=== PATIENT | male | born 1965 | race Caucasian/White ===

== ENCOUNTER 2017-02-02 02:50 | Inpatient (IN) | payer OTHER ==
[~2017-02-02] VITALS: Ht 166.4 cm; Wt 89.7 kg
[~2017-02-02 02:50] MED LIST: ALLO300T2 PO; ATOR-24 PO; BUPR-269 PO; CALC-279 PO; FRS/40 PO; INSDGI SC; LIRA18IN SQ; LISI5TAB3 PO; LYR75 PO; METF-384 PO; PANT40TA PO; RANI300T2 PO; VENL150C PO; VENL75CA PO; VTMD1000 PO; ZOLP5TAB PO
[2017-02-02 03:37] LABS: HEMATOCRIT 43.7 % (42-52); MEAN CELL VOLUME 85.5 fL (80-100); MEAN CORPUSCULAR HGB CONC 32.7 g/dl (32-36); MEAN PLATELET VOLUME 9.4 fL (7.4-10.4); PLATELET COUNT 308 K/uL (130-400); RED BLOOD COUNT 5.11 M/uL (4.7-6.1); WHITE BLOOD COUNT 8.72 K/uL (4.8-10.8)
[2017-02-02 03:45] LABS: BLOOD UREA NITROGEN 18 mg/dl (7-18); GLUCOSE 116 mg/dl (70-99)
[2017-02-02 03:46] LABS: ALT/SGPT 25 U/L (12-78); AST/SGOT 12 U/L (15-37); BUN/CREATININE RATIO 14.1 (10-20); CALCIUM 8.7 mg/dl (8.5-10.1); CARBON DIOXIDE 24 mmol/L (21-32); CHLORIDE 112 mmol/L (98-107); POTASSIUM 3.9 mmol/L (3.5-5.1); SODIUM 144 mmol/L (136-145)
--- NOTE | 2017-02-02 03:49 | EMERGENCY ROOM VISIT NOTE ---
History Report prepared by Clark: Marek Bragg Under the Supervision of: Dr. Kia Epstein D.O. First contact with patient: 03:06 Chief Complaint: MENTAL HEALTH EVALUATION Stated Complaint: SUICIDAL THOUGHTS AND DEPRESSION History of Present Illness The patient is a 51 year old male who presents to the Emergency Room with complaints of constant suicidal ideations beginning this evening. The patient states that nothing has happened, he is just very suicidal and depressed. He reports that if he was not brought in by his , "I would not be here". The patient notes this is the first time he has experienced these ideations. He states he has a history of depression, but he stopped taking his medication because he had gastric bypass surgery and pills hurt his stomach. The patient reports that he does not see a psychiatrist; his PCP prescribes his medication. He notes that 30 minutes ago, he stated "I wish I could take a knife to my chest ". 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 He reports he has never been hospitalized for his current symptoms. The patient notes he is , so he does not see his children everyday. He states he uses alcohol weekly, and he will not go through withdraw. 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 He notes has a history of five hip replacements. The patient denies drug use. Source of History: patient Onset: this evening Position: head Quality: other (suicidal ideations) Timing: constant Associated Symptoms: + abdominal pain Note: Associated symptoms: suicidal plan Review of Systems See HPI for pertinent positives & negatives. A total of 10 systems reviewed and were otherwise negative. Past Medical & Surgical Medical Problems: (1) Chronic hip pain (2) DEPRESSIVE DISORDER NEC (3) HIP JOINT REPLACEMENT STATUS (4) HYPERLIPIDEMIA NEC/NOS (5) Major depressive disorder, recurrent severe without psychotic features (6) Staphylococcal infectious disease Surgical Problems: (1) Status post gastric bypass for obesity Family History Diabetes mellitus Social History Smoking Status: Never Smoker Alcohol Use: occasionally Drug Use: none Marital Status: Housing Status: lives with family Occupation Status: unemployed Current/Historical Medications Scheduled Atorvastatin (Lipitor), 40 MG PO DAILY Pantoprazole (Protonix), 40 MG PO DAILY Allergies Coded Allergies: Penicillins (Verified Allergy, Unknown, joints swell; "serum sickness", 03/29) Physical Exam Vital Signs Date Time Temp Pulse Resp B/P (MAP) Pulse Ox O2 Delivery O2 Flow Rate FiO2 02/02/17 12:01 84 18 140/85 96 02/02/17 10:00 98 18 140/81 95 Room Air 02/02/17 09:00 18 131/71 94 Room Air 02/02/17 08:00 18 130/70 94 Room Air 02/02/17 07:00 94 16 133/56 95 Room Air 02/02/17 06:00 70 16 109/53 93 Room Air 02/02/17 05:01 75 18 102/56 91 Room Air 02/02/17 04:30 72 16 121/60 93 Room Air 02/02/17 02:59 36.9 71 18 138/74 99 Room Air Physical Exam HEENT: Head - normocephalic and atraumatic Pupils are equal, round, and reactive to light. Extraocular eye muscles are intact, and sclera are anicteric. Nose - moist nasal mucosa without discharge. Mouth - moist buccal mucosa. Oropharynx is nonerythematous and there is no tonsillar exudate or edema noted. Neck: Supple; no JVD, nuchal rigidity, cervical lymphadenopathy. Heart: Regular rate and rhythm. There is a normal S1 and S2 with no murmurs, clicks, or gallops appreciated. Lungs: Clear to auscultation bilaterally with no wheezes, rales, or rhonchi. Abdomen: Soft, completely nontender, nondistended, with good bowel sounds. There are no palpable pulsatile masses or hepatosplenomegaly. There is no guarding, rigidity, or rebound noted. Extremities: No evidence of cyanosis, clubbing, or edema. There are easily palpable peripheral pulses. Skin: warm and dry with good turgor and no rashes. Psych: Patient appears depressed with a flat affect. He admits to suicidal ideations with a plan to stab himself in the chest. Medical Decision & Procedures Laboratory Results 02/02/17 03:16 02/02/17 03:16 Test 02/02/17 03:16 02/02/17 03:23 Red Blood Count 5.11 M/uL (4.7-6.1) Mean Corpuscular Volume 85.5 fL (80-100) Mean Corpuscular Hemoglobin 28.0 pg (25-34) Mean Corpuscular Hemoglobin Concent 32.7 g/dl (32-36) RDW Standard Deviation 44.2 fL (36.4-46.3) RDW Coefficient of Variation 14.3 % (11.5-14.5) Mean Platelet Volume 9.4 fL (7.4-10.4) Anion Gap 8.0 mmol/L (3-11) Est Creatinine Clear Calc Drug Dose 73.4 ml/min Estimated GFR () 74.3 Estimated GFR (Non- 64.1 BUN/Creatinine Ratio 14.1 (10-20) Calcium Level 8.7 mg/dl (8.5-10.1) Total Bilirubin 0.2 mg/dl (0.2-1) Direct Bilirubin < 0.1 mg/dl (0-0.2) Aspartate Amino Transf (AST/SGOT) 12 U/L (15-37) Alanine Aminotransferase (ALT/SGPT) 25 U/L (12-78) Alkaline Phosphatase 169 U/L (45-117) Total Protein 7.4 gm/dl (6.4-8.2) Albumin 3.4 gm/dl (3.4-5.0) Thyroid Stimulating Hormone (TSH) 2.850 uIu/ml (0.300-4.500) Salicylates Level < 1.7 mg/dl (2.8-20) Acetaminophen Level < 2 ug/ml (10-30) Ethyl Alcohol mg/dL 243.0 mg/dl (0-3) Urine Color YELLOW Urine Appearance CLEAR (CLEAR) Urine pH 5.0 (4.5-7.5) Urine Specific [place] 1.013 (1.000-1.030) Urine Protein 1+ (NEG) Urine Glucose (UA) NEG (NEG) Urine Ketones NEG (NEG) Urine Occult Blood NEG (NEG) Urine Nitrite NEG (NEG) Urine Bilirubin NEG (NEG) Urine Urobilinogen NEG (NEG) Urine Leukocyte Esterase NEG (NEG) Urine WBC (Auto) 0 /hpf (0-5) Urine RBC (Auto) 0-4 /hpf (0-4) Urine Hyaline Casts (Auto) 0 /lpf (0-5) Urine Epithelial Cells (Auto) 5-10 /lpf (0-5) Urine Bacteria (Auto) NEG (NEG) Urine Opiates Screen NEG (NEG) Urine Methadone, Qualitative NEG (NEG) Urine Barbiturates NEG (NEG) Urine Phencyclidine (PCP) Level NEG (NEG) Ur Amphetamine/Methamphetamine NEG (NEG) MDMA (Ecstasy) Screen NEG (NEG) Urine Benzodiazepines Screen NEG (NEG) Urine Cocaine Metabolite NEG (NEG) Urine Marijuana (THC) NEG (NEG) Laboratory results per my review. ED Course 0330: Past medical records reviewed. The patient was evaluated in room A08. A complete history and physical exam was performed. Labs were drawn as above 0616: I reevaluated the patient, and he is sound asleep. The patient is intoxicated and will require some time to sober up and be medically cleared. 0630: At the change of shift, the patient was signed out to Dr. Herman. Medical Decision The patient is a 51 year old male who presents to the ED with constant suicidal ideations. Differential diagnosis includes suicidal ideations, mood disorder, medication noncompliance. Lab results per my interpretation: normal WBC and H&H, normal TSH and renal function, glucose of 116, normal LFTs, negative tox screen, negative Tylenol and aspirin levels, alcohol of 243, urinalysis is unremarkable. This is a 51 year old male who is not taking his meds as directed. He has becoming increasingly depressed and was drinking alcohol tonight. He had plans to stab himself in the chest. his was able to stop him and bring him to the ER for evaluation. he is willing to admit himself voluntarily. He will be signed out to Dr. Herman at change of shift awaiting sobriety for medical clearance. Impression Primary Impression: Suicidal ideation Scribe Attestation The scribe's documentation has been prepared under my direction and personally reviewed by me in its entirety. I confirm that the note above accurately reflects all work, treatment, procedures, and medical decision making performed by me. Departure Information Dispostion Still a Patient Referrals Reji Cortez III, M.D. (PCP) Patient Instructions [facility]
[2017-02-02 03:50] LABS: URINE APPEARANCE CLEAR (CLEAR); URINE BILIRUBIN NEG (NEG); URINE COLOR YELLOW; URINE NITRITE NEG (NEG); URINE SPECIFIC GRAVITY 1.013 (1.000-1.030); UROBILINOGEN NEG (NEG)
[2017-02-02 03:56] LABS: ALKALINE PHOSPHATASE 169 U/L (45-117)
[2017-02-02 03:59] LABS: MANUAL MICROSCOPIC REQUIRED? NO; REVIEW REQ? YES
[2017-02-02 04:09] LABS: BENZODIAZEPINE, URINE NEG (NEG); COCAINE,URINE NEG (NEG); PHENCYCLIDINE, URINE NEG (NEG)
[2017-02-02 04:18] LABS: ACETAMINOPHEN < 2 ug/ml (10-30)
[2017-02-02] MEDS ORDERED: EFFSR75 PO (10:49)
[2017-02-02 12:01] VITALS: O2SAT 96
[2017-02-02 12:38] VITALS: BP 153/78; PULSE 85; TEMP 36.9; Ht 166.4 cm; Wt 89.7 kg
[2017-02-02] MEDS ORDERED: BISMUTH SUBSALICYLATE PER ML OMNICELL CHARGE PO PRN (12:45)
[2017-02-02] MEDS ORDERED: SODIUM CHLORIDE 0.65% NA SOLN 45 ML (OCEAN) PRN (12:45)
[2017-02-02] MEDS ORDERED: ALUMINUM/MAGNESIUM SUSP 30 ML UDC PO PRN (12:45)
[2017-02-02] MEDS ORDERED: LORAZEPAM 1 MG TAB PO PRN (12:45)
[2017-02-02] MEDS ORDERED: hydrOXYzine HCL 25 MG TAB PO PRN (12:45)
[2017-02-02] MEDS ORDERED: ACETAMINOPHEN 325 MG TAB PO PRN (12:45)
[2017-02-02] MEDS ORDERED: MAGNESIUM HYDROXIDE SUSP 30 ML UDC PO PRN (12:45)
--- NOTE | 2017-02-02 13:38 | EMERGENCY ROOM VISIT NOTE ---
ED Visit Note First contact with patient: 10:31 The patient was evaluated and awake, alert, and talking with [place]. Skin no complaints of the time. He is agreeable to a 201 as he was having thoughts of self-harm last night.
[2017-02-02] MEDS ORDERED: VENL75TA4 PO (16:12)
[2017-02-02 16:14] VITALS: BP 150/81; PULSE 79; TEMP 36.8
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
[2017-02-02 20:35] VITALS: BP 144/84; PULSE 71; TEMP 36.9
[2017-02-02] MEDS ORDERED: RANITIDINE HCL 150 MG TAB PO SCH (22:00)
[2017-02-02] MEDS ORDERED: VENLAFAXINE HCL XR 75 MG CAPXR PO SCH (22:00)
[2017-02-03 06:52] VITALS: BP_SYST 148; BP_SYST 154; BP_DIAS 83; PULSE 65; PULSE 92; TEMP 36.8
[2017-02-03 08:01] VITALS: BP 134/82; PULSE 70; TEMP 36.7
[2017-02-03] MEDS ORDERED: ATORVASTATIN 40 MG TAB PO SCH (09:00)
[2017-02-03] MEDS ORDERED: VENLAFAXINE HCL XR 75 MG CAPXR PO SCH (09:00)
[2017-02-03] MEDS ORDERED: VENLAFAXINE HCL 37.5 MG TAB PO SCH (09:00)
[2017-02-03] MEDS: PANTOprazole SOD 40 MG TAB PO SCH (09:19)
[2017-02-03] MEDS: ATORVASTATIN 40 MG TAB PO SCH (09:19)
[2017-02-03 12:33] VITALS: BP 165/97; PULSE 70; TEMP 37
[2017-02-03 17:36] VITALS: BP 146/80; PULSE 67; TEMP 36.9
--- NOTE | 2017-02-03 17:44 | Psychiatric Progress Notes ---
Progress Note Date of Service Feb 03, 2017. Chief Complaint "abd pain that meds seem to worsen". Subjective Patient was seen & assessed interval progress reviewed with nursing. Pt weary about Effexor ir and how could worsen his GI concern of abd pain. He feels that various tabs/caps are likely to worsen his abd pain. He associates this with the Effexor ir pill. He is also needing a med and form that can be well absorbed despite s/p gastric bypass. He is highly focused on liquid form of antidepressant medication or dissolvable form. He shared how various med trials over the many years tend to work decently but some have had various Sexual s/e. Effexor ir had delayed ejaculation but less sexual s/e then some of the other ones. He does not think that he ever took lexapro or celexa or remeron. He described being more irritable when more depressed. he endorsed 10 years of not drinking alcohol but about 8 hours ago starting drinking alcohol again with various degree of being able to drink moderately and occasionally only. However past few months his drinking increased beyond contained amounts. He is expressing motivation to abstaining from all alcohol usage for the time being since he realizes he is not in a place to contain his alcohol levels and that once drinks 3-4 drinks is likely to drink much more. HE endorsed a past h/o blackouts when drink in his 20's but not with drinking in recent years. He endorsed h/o peripheral neuropathy but wants to remain off gabapentin or Lyrica that has taken in the past. his mood is not as depressed today and SI is passive since being here and denied being present at time of assessment. 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 Review of Systems Constitutional: No fever, No chills, No sweats, No weight loss, No weakness, No fatigue, No problem reported ENT: No hearing loss, No unusual epistaxis, No nasal symptoms, No sore throat, No tinnitus, No dental problems, No trouble swallowing, No problem reported Respiratory: No cough, No sputum, No wheezing, No shortness of breath, No dyspnea on exertion, No dyspnea at rest, No hemoptysis, No problem reported Cardiovascular: No chest pain, No orthopnea, No PND, No edema, No claudication , No palpitations, No problem reported Abdomen: + problem reported (abd pain and bloating) Musculoskeletal: + joint pain Neurologic: + problem reported (peripheral neuropathy and parathesia ) Psychiatric: + depression symptoms Sleep Information Total Hours of Sleep: 7.00 Meal Information Percent of Breakfast Consumed: 100 Percent of Lunch Consumed: 100 Percent of Dinner Consumed: 75 Mental Status Exam During interview pt is: alert and oriented, cooperative Appearance: appropriately dressed, appropriately groomed Eye contact is: good Motor behavior is: no abnormal motor movements, other (gait limping) Speech: normal in rate, rhythm & volume Affect: mood congruent Mood is: other (less depresed today ) Thought process: goal directed Thought content: reality based without delusions Suicidal thought are: Plan: denied, Intent: denied Homicidal thoughts are: denied Hallucinations: denies auditory, denies visual Cognition: memory grossly intact, attention grossly intact, language grossly intact Intelligence estimated to be: average Insight: fair Judgement: fair Impression 51-year-old gentleman with chronic depression, admitted voluntarily with alcohol abuse and suicidal ideation. He is able to recognize that being inconsistent with his medications has contributed to his depression and is agreeable to restarting medicines and finding ways to be more consistent. He has been followed by GI at [facility] but was released 3 months ago after his endoscopy was completely normal. He would like to have GI follow-up locally and we will attempt to make that referral here as his occasional stomach pain is interfering with his ability to take his medications. He will also need psychiatric follow-up given the chronicity of his depression. Alcohol binging has been a problem in the past and he was able to successfully abstain from that for 10 years but has resorted back to it during this time of depression. We're recommending abstinence which he is agreeable to. At this time however he requires inpatient mental health treatment due to the severity of his condition and the risk for self-harm if discharged. Plan (1) Major depressive disorder, recurrent severe without psychotic features 02/02 - Restart Effexor IR 75 mg every morning to target not only mood but chronic pain if tolerated will be able to escalate to 75 mg twice a day over the weekend - Family meeting with - Every 15 minute checks for safety - Encourage participation in group and individual counseling - The patient will need psychiatric aftercare - Explore healthy coping strategies 02/03 -stop effexor ir, replace with lexapro liquid form, tonight 5mg hs, increase to 10mg as of 02/04. consider remeron dissolvable form since the remeron much less likely to have any GI s/e and the dissolvable form would bypass GI tract, however sedation s/e concerns and potential issue of obtaining odt pill form had us prefer lexparo liquid as preferred choice.cymbalta reviwwed but capslue that are not to be opened and ER form of med has pt not willing to take (pt is s/p gastric bypass ) (2) Alcohol use disorder 02/02 - Recommend abstaining from alcohol for now 02/03 -reviewed alcohol concerns in detail and using motivational style interviewing for over 10 minutes, pt is indicating plan to abstain from alcohol for foressable immediate future, aims to enlist in support of this, pt at this time does not feel he needs counseling that is substance focused or rehab or meds to address ptoential cravings since went 10 years without drinking with needing such interventions and was drinking more freq and heavier when quit drinking back then (3) Chronic hip pain 02/02 - Tylenol when necessary (4) HYPERLIPIDEMIA NEC/NOS 02/02 - Continue a tour atorvastatin at home dosing (5) Status post gastric bypass for obesity 02/02 - Only immediate release medications - Continue Protonix 40 mg daily - Referred to outpatient GI through [facility]. If pain continues here in the hospital, consider consulting while here Has been reviewed with Dr. Angela bruce Discharge / Aftercare Planning Primary Care Physician: Name: Dr. Cortez Therapist: Name: none Litigation Claim Representative: Name: none Visit Code E&M Code: 33134 Inventory Assets Strengths: Love of his , recent weight loss resulting in improvement in his health conditions Needs: To abstain from alcohol Risk Factors Assessment Male: Yes : Yes /single/: No Higher / Fall in social status: No Health problems: Yes Mental Health Diagnoses: Yes Substance use disorders: Yes Previous attempt: No Previous psychiatric stay: No Hopelessness: No Smoker: No Protective Factors Assessment Congregational beliefs: No Responsible for young children: No Employed: Yes Stable relationships: Yes Supportive family: Yes Data Vital Signs Last 24 Hrs: Date Time Temp Pulse Resp B/P (MAP) Pulse Ox O2 Delivery O2 Flow Rate FiO2 02/03/17 12:33 37.0 70 18 165/97 02/03/17 08:01 36.7 70 16 134/82 02/03/17 06:52 36.8 65 16 148/83 92 154/83 02/02/17 20:35 36.9 71 16 144/84 Meds Administered Last 24 Hrs: Meds Administered (Past 24Hrs) Medications (Trade) Dose Ordered Sig/Betty Route Start Time Stop Time Status Last Admin Dose Admin Pantoprazole Sodium (Protonix Tab) 40 mg DAILY PO 02/03/17 09:00 03/05/17 08:59 02/03/17 09:19 40 MG Venlafaxine HCl (effeXOR TAB) 75 mg QAM PO 02/03/17 09:00 02/03/17 12:04 DC 02/03/17 09:19 75 MG Atorvastatin Calcium (Lipitor Tab) 40 mg QAM PO 02/03/17 09:00 03/05/17 08:59 02/03/17 09:19 40 MG
[2017-02-03 20:48] VITALS: BP 148/88; PULSE 63; TEMP 36.8
[2017-02-03] MEDS ORDERED: ESCITALOPRAM OXALATE 5 MG/5 ML PO SCH (22:00)
[2017-02-04] MEDS: hydrOXYzine HCL 25 MG TAB PO PRN ×2 (00:51→21:06)
[2017-02-04 06:49] VITALS: BP_SYST 138; BP_SYST 146; BP_DIAS 81; BP_DIAS 82; PULSE 57; PULSE 66; TEMP 36.5
[2017-02-04] MEDS: ATORVASTATIN 40 MG TAB PO SCH (09:00)
[2017-02-04] MEDS: PANTOprazole SOD 40 MG TAB PO SCH (09:00)
--- NOTE | 2017-02-04 12:05 | Psychiatric Progress Notes ---
Progress Note Date of Service Feb 04, 2017. Chief Complaint "feeling better". Subjective Patient was seen & assessed interval progress reviewed with nursing. Pt indicated that he is feeling better today, noticing some improvement in his "deep, dark depression" He is having a better sense of motivation, hope, and more able to engage. He watched some of the [employer] football game last night and got into it a bit. He did have trouble going to sleep and indicates this is worsened by his tending to work nights but also did not fall asleep till after 3am, with sitting in the day room for an extended time after obtaining the vistaril dose at about 0050. Pt feels his GI pain has lessened form yesterday and more indigestion and GERD discomfort that he finds more tolerable today. he indicated to nursing staff yesterday that the pain he had yesterday morning was to the degree that he would be pulled to hold his meds while expressing a desire to maintain on an antidepressant due to realizing how alleviating it is for him in treating his symptoms. He also has aa sense that lexapro liquid will be less aggravating to his GI concerns and wants to continue on this medication. He denied si or hi. He is attending group.s He slept about 4 1/2 hours per staff. he shared how he has been prescribed lisinopril 2.5mg at bedtime but has not taken this med in past few weeks and was poor in med compliance with any meds in recent past. He is wanting to resume the lisinopril due to his DM/kidney concerns and how his BP has been increasing some while on the unit. He denied s/e to the first dose of lexapro. Family meeting with scheduled for Sunday. told his family members about his hospital stay and pt obtaining supportive feedback from them. Review of Systems Constitutional: No fever, No chills, No sweats, No weight loss, No weakness, No fatigue, No problem reported ENT: No hearing loss, No unusual epistaxis, No nasal symptoms, No sore throat, No tinnitus, No dental problems, No trouble swallowing, No problem reported Cardiovascular: No chest pain, No orthopnea, No PND, No edema, No claudication , No palpitations, No problem reported Abdomen: + pain (improved to milder GERD/indigestion only today ) Psychiatric: + depression symptoms, + insomnia Sleep Information Total Hours of Sleep: 4.50 Meal Information Percent of Breakfast Consumed: 100 Percent of Lunch Consumed: 100 Percent of Dinner Consumed: 0 Mental Status Exam During interview pt is: alert and oriented, cooperative Appearance: appropriately dressed, appropriately groomed Eye contact is: good Motor behavior is: no abnormal motor movements, other (gait limping) Speech: normal in rate, rhythm & volume Affect: mood congruent Mood is: other ("feeling better then yesterday") Thought process: goal directed Thought content: reality based without delusions Suicidal thought are: Plan: denied, Intent: denied Homicidal thoughts are: denied Hallucinations: denies auditory, denies visual Cognition: memory grossly intact, attention grossly intact, language grossly intact Intelligence estimated to be: average Insight: fair (improving) Judgement: fair (improving , some ambivalance that appears to be lessening) Impression 51-year-old gentleman with chronic depression, admitted voluntarily with alcohol abuse and suicidal ideation. He is able to recognize that being inconsistent with his medications has contributed to his depression and is agreeable to restarting medicines and finding ways to be more consistent. He has been followed by GI at [facility] but was released 3 months ago after his endoscopy was completely normal. He would like to have GI follow-up locally and we will attempt to make that referral here as his occasional stomach pain is interfering with his ability to take his medications. He will also need psychiatric follow-up given the chronicity of his depression. Alcohol binging has been a problem in the past and he was able to successfully abstain from that for 10 years but has resorted back to it during this time of depression. We're recommending abstinence which he is agreeable to. At this time however he requires inpatient mental health treatment due to the severity of his condition and the risk for self-harm if discharged. Plan (1) Major depressive disorder, recurrent severe without psychotic features 02/02 - Restart Effexor IR 75 mg every morning to target not only mood but chronic pain if tolerated will be able to escalate to 75 mg twice a day over the weekend - Family meeting with - Every 15 minute checks for safety - Encourage participation in group and individual counseling - The patient will need psychiatric aftercare - Explore healthy coping strategies 02/03 -stop effexor ir, replace with lexapro liquid form, tonight 5mg hs, increase to 10mg as of 02/04. consider remeron dissolvable form since the remeron much less likely to have any GI s/e and the dissolvable form would bypass GI tract, however sedation s/e concerns and potential issue of obtaining odt pill form had us prefer lexparo liquid as preferred choice.cymbalta reviwwed but capslue that are not to be opened and ER form of med has pt not willing to take (pt is s/p gastric bypass ) 02/04 increase lexapro liquid 10mg hs offered switched to remeron dissolvable tabs pt prefers to continue lexapro trial since GI concerns improving currently family meeting with on Sunday (2) Alcohol use disorder 02/02 - Recommend abstaining from alcohol for now 02/03 -reviewed alcohol concerns in detail and using motivational style interviewing for over 10 minutes, pt is indicating plan to abstain from alcohol for foressable immediate future, aims to enlist in support of this, pt at this time does not feel he needs counseling that is substance focused or rehab or meds to address ptoential cravings since went 10 years without drinking with needing such interventions and was drinking more freq and heavier when quit drinking back then 02/04 discontinue alcohol withdrawal precautions orders given lack of symptoms, pt denied craving for alcohol and continues to express desire to abstain and to obtain 's support (3) Chronic hip pain 02/02 - Tylenol when necessary (4) HYPERLIPIDEMIA NEC/NOS 02/02 - Continue a tour atorvastatin at home dosing (5) Status post gastric bypass for obesity 02/02 - Only immediate release medications - Continue Protonix 40 mg daily - Referred to outpatient GI through [facility]. If pain continues here in the hospital, consider consulting while here (6) Diabetes mellitus with hyperglycemia 02/04 -- resumed outpt lisinopril at 2.5mg hs, pt has not taken much of his outpt meds in weeks leading up to admission, BP trending upward and lisinpril was also used for kidney function concerns with his DM Has been reviewed with Dr. Angela bruce Discharge / Aftercare Planning Primary Care Physician: Name: Dr. Cortez Therapist: Name: none Pitch Gatherer: Name: none Visit Code E&M Code: 89899 Inventory Assets Strengths: Love of his , recent weight loss resulting in improvement in his health conditions Needs: To abstain from alcohol Risk Factors Assessment Male: Yes : Yes /single/: No Higher / Fall in social status: No Health problems: Yes Mental Health Diagnoses: Yes Substance use disorders: Yes Previous attempt: No Previous psychiatric stay: No Hopelessness: No Smoker: No Protective Factors Assessment Advent beliefs: No Responsible for young children: No Employed: Yes Stable relationships: Yes Supportive family: Yes Data Vital Signs Last 24 Hrs: Date Time Temp Pulse Resp B/P (MAP) Pulse Ox O2 Delivery O2 Flow Rate FiO2 02/04/17 06:49 36.5 57 18 146/82 66 138/81 02/03/17 20:48 36.8 63 18 148/88 02/03/17 17:36 36.9 67 18 146/80 02/03/17 12:33 37.0 70 18 165/97 Meds Administered Last 24 Hrs: Meds Administered (Past 24Hrs) Medications (Trade) Dose Ordered Sig/Betty Route Start Time Stop Time Status Last Admin Dose Admin Hydroxyzine HCl (Vistaril Tab) 50 mg HSZ PRN PO 02/02/17 12:45 03/04/17 12:44 02/04/17 00:51 50 MG Pantoprazole Sodium (Protonix Tab) 40 mg DAILY PO 02/03/17 09:00 03/05/17 08:59 02/04/17 09:00 40 MG Venlafaxine HCl (effeXOR TAB) 75 mg QAM PO 02/03/17 09:00 02/03/17 12:04 DC 02/03/17 09:19 75 MG Atorvastatin Calcium (Lipitor Tab) 40 mg QAM PO 02/03/17 09:00 03/05/17 08:59 02/04/17 09:00 40 MG Escitalopram Oxalate (Lexapro Oral Soln) 5 mg HS PO 02/03/17 22:00 02/03/17 22:01 DC 02/03/17 21:45 5 MG
[2017-02-04] MEDS: LISINOPRIL 2.5 MG TAB PO SCH (21:05)
[2017-02-04] MEDS: ESCITALOPRAM OXALATE PO SCH (21:05)
[2017-02-04 21:08] VITALS: BP 150/80; PULSE 82
[2017-02-05 06:48] VITALS: BP_SYST 133; BP_SYST 134; BP_DIAS 64; BP_DIAS 78; PULSE 60; TEMP 36.3
[2017-02-05] MEDS: ATORVASTATIN 40 MG TAB PO SCH (09:00)
[2017-02-05] MEDS: PANTOprazole SOD 40 MG TAB PO SCH (09:00)
--- NOTE | 2017-02-05 11:59 | Psychiatric Progress Notes ---
Progress Note Date of Service Feb 05, 2017. Interval History Yair Shaw is a 51-year-old white male who currently resides in [place], has a history of depression and alcohol abuse, and was brought to the emergency department by his for suicidal ideation. He is admitted on a voluntary basis. Chief Complaint "Exceedingly better". Subjective Patient was seen & assessed interval progress reviewed with Treatment Team. Staff report the patient's visited yesterday, so he was excused from some groups, but attended and participated in the other groups. He also had a visit from a friend, and spoke with his parents. He says that his stomach has been feeling better, which has contributed to improved mood, and also feels supported by his friends and family. Today, he states that his mood has improved since admission, and says his thoughts are "better, not the dark thoughts I was having." He denies suicidal thoughts. He thinks it has helped to realize how much support he has from friends and family, to get on new medication that does not hurt his stomach, and feel that people are "taking me seriously." He says that in the past, when he complained that his medications were making him feel sick, he felt no one listened or offered alternatives. He continues to feel that he is "a burden on others," and says he would like to go home as soon as possible, as "just being here is a burden." We discussed his alcohol abuse, and he states that he is "been prone to binge drinking throughout my life, and I can easily stop whenever I want." He says he is committed to not drinking, and does not think he will have any problem making that change. He denies that there is alcohol in the house, other than a bottle of cooking wine, which he says he does not drink. He also talks about the various hobbies he used to enjoy, and states he would like to get back into them after discharge. Sleep Information Total Hours of Sleep: 7.50 Meal Information Percent of Breakfast Consumed: 100 Percent of Lunch Consumed: 100 Percent of Dinner Consumed: 75 Mental Status Exam During interview pt is: alert and oriented, cooperative Appearance: appropriately dressed, appropriately groomed Eye contact is: good Motor behavior is: no abnormal motor movements Speech: normal in rate, rhythm & volume Affect: mood congruent, euthymic Mood is: other (better) Thought process: goal directed Thought content: reality based without delusions Suicidal thought are: denied Homicidal thoughts are: denied Hallucinations: denies auditory, denies visual Cognition: memory grossly intact, attention grossly intact, language grossly intact Intelligence estimated to be: average Insight: fair Judgement: fair Impression 51-year-old gentleman with chronic depression, admitted voluntarily with alcohol abuse and suicidal ideation. He is able to recognize that being inconsistent with his medications has contributed to his depression and is agreeable to restarting medicines and finding ways to be more consistent. He has been followed by GI at [facility] but was released 3 months ago after his endoscopy was normal. He would like to have GI follow-up locally and we will attempt to make that referral here as his occasional stomach pain is interfering with his ability to take his medications. He will also need psychiatric follow-up given the chronicity of his depression. Alcohol abuse has also been a problem, and he was able to successfully abstain from that for 10 years, but has relapsed during this time of depression. We're recommending abstinence which he is agreeable to. At this time however he requires inpatient mental health treatment due to the severity of his condition and the risk for self-harm if discharged. Plan (1) Major depressive disorder, recurrent severe without psychotic features 02/02 - Restart Effexor IR 75 mg every morning to target not only mood but chronic pain if tolerated will be able to escalate to 75 mg twice a day over the weekend - Family meeting with - Every 15 minute checks for safety - Encourage participation in group and individual counseling - The patient will need psychiatric aftercare - Explore healthy coping strategies 02/03 -stop effexor ir, replace with lexapro liquid form, tonight 5mg hs, increase to 10mg as of 02/04. consider remeron dissolvable form since the remeron much less likely to have any GI s/e and the dissolvable form would bypass GI tract, however sedation s/e concerns and potential issue of obtaining odt pill form had us prefer Lexapro liquid as preferred choice.cymbalta reviewed but capsule that are not to be opened and ER form of med has pt not willing to take (pt is s/p gastric bypass ) 02/04 increase lexapro liquid 10mg hs offered switched to remeron dissolvable tabs pt prefers to continue lexapro trial since GI concerns improving currently family meeting with on Monday 02/05 - Continue escitalopram liquid 10 mg daily at bedtime. - Family meeting arranged with , will need to review safety plan, including abstinence from alcohol. - Arrange psychiatric aftercare. (2) Alcohol use disorder 02/02 - Recommend abstaining from alcohol for now 02/03 -reviewed alcohol concerns in detail and using motivational style interviewing for over 10 minutes, pt is indicating plan to abstain from alcohol for foressable immediate future, aims to enlist in support of this, pt at this time does not feel he needs counseling that is substance focused or rehab or meds to address ptoential cravings since went 10 years without drinking with needing such interventions and was drinking more freq and heavier when quit drinking back then 02/04 discontinue alcohol withdrawal precautions orders given lack of symptoms, pt denied craving for alcohol and continues to express desire to abstain and to obtain 's support (3) Chronic hip pain 02/02 - Tylenol when necessary (4) HYPERLIPIDEMIA NEC/NOS 02/02 - Continue a tour atorvastatin at home dosing (5) Status post gastric bypass for obesity 02/02 - Only immediate release medications - Continue Protonix 40 mg daily - Referred to outpatient GI through [facility]. If pain continues here in the hospital, consider consulting while here (6) Diabetes mellitus with hyperglycemia 02/04 -- resumed outpt lisinopril at 2.5mg hs, pt has not taken much of his outpt meds in weeks leading up to admission, BP trending upward and lisinpril was also used for kidney function concerns with his DM Has been reviewed with Dr. Angela bruce Discharge / Aftercare Planning Primary Care Physician: Name: Dr. Cortez Therapist: Name: none Spike Maker: Name: none Inventory Assets Strengths: Love of his , recent weight loss resulting in improvement in his health conditions Needs: To abstain from alcohol Risk Factors Assessment Male: Yes : Yes /single/: No Higher / Fall in social status: No Health problems: Yes Mental Health Diagnoses: Yes Substance use disorders: Yes Previous attempt: No Previous psychiatric stay: No Hopelessness: No Smoker: No Protective Factors Assessment Jain beliefs: No Responsible for young children: No Employed: Yes Stable relationships: Yes Supportive family: Yes Data Vital Signs Last 24 Hrs: Date Time Temp Pulse Resp B/P (MAP) Pulse Ox O2 Delivery O2 Flow Rate FiO2 02/05/17 06:48 36.3 60 18 133/64 134/78 02/04/17 21:08 82 18 150/80 Meds Administered Last 24 Hrs: Meds Administered (Past 24Hrs) Medications (Trade) Dose Ordered Sig/Betty Route Start Time Stop Time Status Last Admin Dose Admin Escitalopram Oxalate (Lexapro Oral Soln) 5 mg HS PO 02/03/17 22:00 02/03/17 22:01 DC 02/03/17 21:45 5 MG Escitalopram Oxalate (Lexapro Oral Soln) 10 mg HS PO 02/04/17 22:00 03/06/17 21:59 02/04/17 21:05 10 MG Lisinopril (Zestril Tab) 2.5 mg HS PO 02/04/17 22:00 03/06/17 21:59 02/04/17 21:05 2.5 MG
[2017-02-05] MEDS: LISINOPRIL 2.5 MG TAB PO SCH (21:23)
[2017-02-05] MEDS: ESCITALOPRAM OXALATE PO SCH (21:23)
[2017-02-05] MEDS: hydrOXYzine HCL 25 MG TAB PO PRN (21:24)
[2017-02-05 21:25] VITALS: BP 136/78; PULSE 71
[2017-02-06 06:40] VITALS: BP_SYST 112; BP_SYST 118; BP_DIAS 71; BP_DIAS 72; PULSE 60; PULSE 64; TEMP 36.5
[2017-02-06] MEDS ORDERED: LSN25 PO (08:53)
[2017-02-06] MEDS ORDERED: ESCI1SOL2 PO (08:53)
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
[2017-02-06] MEDS: PANTOprazole SOD 40 MG TAB PO SCH (09:08)
[2017-02-06] MEDS: ATORVASTATIN 40 MG TAB PO SCH (09:08)
[2017-02-06] MEDS ORDERED: ESCITALOPRAM OXALATE PO SCH (10:15)
[2017-02-07] MEDS ORDERED: ESCITALOPRAM OXALATE PO SCH (09:00)
== END 2017-02-06 10:45 | disposition home or self-care (01) | DRG 885 ==
LOC: C.EDB 02:51 → C.MHU 12:07
PROVIDERS: ADMIT Psychiatry & Neurology Child & Adolescent Psychiatry; ATTEND Psychiatry & Neurology Child & Adolescent Psychiatry
DX: F33.2 Major depressive disorder, recurrent severe without psychotic features (principal); R45.851 Suicidal ideations; E78.5 Hyperlipidemia, unspecified; F10.10 Alcohol abuse, uncomplicated; G89.29 Other chronic pain; M25.559 Pain in unspecified hip; E11.65 Type 2 diabetes mellitus with hyperglycemia; Z79.899 Other long term (current) drug therapy; Z98.84 Bariatric surgery status; Z81.8 Family history of other mental and behavioral disorders

== ENCOUNTER → 2017-07-26 | Outpatient (CLI) | payer OTHER ==
[~2017-07-26] MED LIST changes: -ALLO300T2 PO; -BUPR-269 PO; -CALC-279 PO; +ESCI1SOL2 PO; -FRS/40 PO; -INSDGI SC; -LIRA18IN SQ; -LISI5TAB3 PO; +LSN25 PO; -LYR75 PO; -METF-384 PO; -RANI300T2 PO; -VENL150C PO; -VENL75CA PO; -VTMD1000 PO; -ZOLP5TAB PO
[2017-07-26 09:34] LABS: BASO % 0.6 %; BASO ABS # 0.05 K/uL (0-0.2); EOS % 3.5 %; HEMATOCRIT 38.8 % (42-52); HEMOGLOBIN 12.6 g/dL (14.0-18.0); IG# 0.03 K/uL (0.00-0.02); LYMPH % 24.4 %; LYMPH ABS # 2.11 K/uL (1.2-3.4); MEAN CELL VOLUME 85.1 fL (80-100); MEAN CORPUSCULAR HEMOGLOBIN 27.6 pg (25-34); MEAN CORPUSCULAR HGB CONC 32.5 g/dl (32-36); MEAN PLATELET VOLUME 10.4 fL (7.4-10.4); MONO % 10.6 %; MONO ABS # 0.92 K/uL (0.11-0.59); NEUT % 60.6 %; NEUT ABS # 5.25 K/uL (1.4-6.5); PLATELET COUNT 241 K/uL (130-400); RED CELL DISTRIBUTION WIDTH CV 14.6 % (11.5-14.5); RED CELL DISTRIBUTION WIDTH SD 45.2 fL (36.4-46.3); WHITE BLOOD COUNT 8.66 K/uL (4.8-10.8)
--- NOTE | 2017-07-26 11:35 | DIAGNOSTIC IMAGING REPORT ---
BONE SCAN 3 PHASE LIMITED CLINICAL HISTORY: LEFT HIP PAIN,R/O LOOSENING,Z96.642 hip pain TECHNIQUE: Multiphase evaluation from the administration of 27.3 mCi technetium 99m HDP. COMPARISON STUDY: None FINDINGS: Vascular flow images are unremarkable. Blood pool images show no abnormal activity characteristics. Static images obtained show unremarkable activity about a left hip arthroplasty. Findings of mild degenerative activity lateral aspect right acetabulum. No abnormal soft tissue activity characteristics are present. IMPRESSION: Negative three-phase bone scan of the left hip and bony pelvis. Minimal degenerative activity right acetabulum The above report was generated using voice recognition software. It may contain grammatical, syntax or spelling errors. Electronically signed by: Pj Pineda M.D. 07/26/2017 11:34 AM Dictated Date/Time: 07/26/2017 11:31 AM
== END | disposition home or self-care (01) ==
LOC: C.NUCL 07:39
DX: T84.031A Mechanical loosening of internal left hip prosthetic joint, initial encounter (principal); T84.84XA Pain due to internal orthopedic prosthetic devices, implants and grafts, initial encounter; Y83.1 Surgical operation with implant of artificial internal device as the cause of abnormal reaction of the patient, or of later complication, without mention of misadventure at the time of the procedure

== ENCOUNTER 2018-08-30 09:05 | Inpatient (IN) ==
[2018-08-30] MEDS ORDERED: HYDROmorphone INJ 0.5 MG/0.5 ML SYR IV PRN (09:42)
[2018-08-30] MEDS ORDERED: ONDANSETRON INJ 2 MG/ML 2 ML VIAL IV STA (09:42)
[2018-08-30] MEDS ORDERED: SODIUM CHLORIDE 0.9% 1000ML 1,000 ML IV SCH (09:45)
[2018-08-30] MEDS ORDERED: FAMOTIDINE 20MG/5ML IV PUSH IV STA (09:49)
--- NOTE | 2018-08-30 09:57 | Emergency Department Note ---
Entered by Karen Platt acting as a scribe for Reji Juan MD ED Provider Note CHIEF COMPLAINT: Left upper quadrant abdominal pain HISTORY OF PRESENT ILLNESS: The patient is a 53 year old male who presents to the Emergency Room with complaints of left upper quadrant abdominal pain beginning yesterday afternoon. He rates his pain at a 5/10 and states that his pain is constant. The patient states that walking exacerbates his pain. The patient also reports having black stools today. He states that he took Pepto-Bismol for his pain last night at 1999. The patient reports that he has had a loss of appetite. The patient states that he was unable to sleep last night secondary to the pain. The patient states that he had a gastric bypass 3 years ago. The patient reports a history of bleeding ulcers prior to the gastric bypass. He also reports a history of GERD. He states that he is not on blood thinners and states that he does not take NSAIDs. He denies recent travel or being around anyone sick. He states that 2 days ago he took Clindamycin but states that he only took it once. Pt denies LOC, headache, fevers, chills, diaphoresis, visual changes, neck pain, chest pain, breathing difficulties, vomiting, back pain, urinary symptoms, numbness, weakness, lymphadenopathy, rash, or other complaints. REVIEW OF SYSTEMS: See HPI for pertinent positives and negatives. A total of ten systems were reviewed and were otherwise negative. PMHx/PSHx: Diabetes, Gastric Bypass, GERD SOCIAL HISTORY: Patient lives at home. PHYSICAL EXAM: GENERAL: Awake, alert, well-appearing, in no distress HENT: Normocephalic, atraumatic. Oropharynx unremarkable. EYES: Normal conjunctiva. Sclera non-icteric. NECK: Inspection normal. Non-tender. Supple. No nuchal rigidity. FROM. No masses. RESPIRATORY: Clear to auscultation. No wheezes. No rales. Normal respiratory effort. CARDIAC: Normal rate. Normal rhythm. No murmurs. No rubs. Extremities warm and well perfused. Pulses equal. No JVD. GI: Soft, non-distended. Mild epigastric and left upper quadrant tenderness to palpation. No rebound or guarding. No masses. RECTAL: Black stool, heme positive. MUSCULOSKELETAL: Atraumatic. Chest examination reveals no tenderness. The back is symmetrical on inspection without obvious abnormality. There is no CVA tenderness to palpation. No joint edema. LOWER EXTREMITIES: Calves are equal size bilaterally and non-tender. No edema. No discoloration. NEURO: Normal sensorium. No sensory or motor deficits noted. SKIN: No rash or jaundice noted. EMERGENCY DEPARTMENT COURSE: 09: The patient was evaluated in room B4B, and a complete history and physical examination were performed. 1136: I updated the patient who verbalized agreement and understanding of the treatment plan. 1142: I discussed the patient's case with Cornelia Maguire who will evaluate the patient for further management. MEDICAL DECISION MAKING: Triage Nursing notes reviewed. The patient's presentation and history were concerning for abdominal pain, black stool and gastric bypass. Etiologies such as marginal ulcer, peptic ulcer disease, variceal bleed, gastritis, diverticulosis, fissure, hemorrhoids, AVM, coagulopathy, colitis, inflammatory bowel disease, malignancy, Mariann-[place] tear, esophagitis, epistaxis, as well as others were entertained. Patient was evaluated. Physical examination revealed black stool that were Hemoccult positive. An IV was established. Blood work obtained. Patient was typed and screened. Saline hydration was given. Patient was given IV Pepcid. IV Protonix is on back order. CT imaging was ordered. The patient was reassessed. He was feeling better after IV Dilaudid. The patient had a negative CT scan. He was anemic on his CBC. Chemistry panel did reveal a mild elevation of his BUN. This is concerning for an upper GI bleed. Consultation was made with internal medicine. The patient was evaluated in the ER and admitted for further treatment. IMPRESSION: Upper GI bleed Left upper quadrant abdominal pain PLAN: Admitted The scribe's documentation has been prepared under my direction and personally reviewed by me in its entirety. I confirm that the note above accurately reflects all work, treatment, procedures, and medical decision making performed by me. 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 History of left hip replacement (Chronic) 2008, avascular necrosis History of carpal tunnel surgery (Chronic) History of colonoscopy (Chronic) History colonoscopy 05/2016 : Serrated adenomatous polyp, diverticulosis History of esophagogastroduodenoscopy (EGD) (Chronic) History EGD 04/2017: Guzmán's esophagus, healed anastomotic erosion Status post gastric bypass for obesity (Chronic) Gastric bypass status for obesity (Resolved) Social History Preferred Language: Trinidadian Communication Ability: Effective 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 Beliefs That Will Affect Care: None Current Living Situation: Spouse Other Information That Helps Us Care for You: No Feels Safe at Home: Yes Safety Concerns: Feels Safe At This Time Smoking Status: Never smoker Second Hand Exposure: Yes (As a child.) Hx Alcohol Use: Yes Alcohol type: beer Hx Substance Use: No Results & Data Vital Signs Vital Signs - 24 hr 08/30/18 09:14 08/30/18 10:04 08/30/18 10:05 Temperature 36.9 C Temperature Source Oral Sepsis Recent Fever Within 48 Hours No Sepsis New/Unexplained Change in Mental Status No Sepsis Action Taken by Nursing No Action Required Pulse Rate 84 Pulse Rate [Apical] 73 Pulse Rate from SpO2 Sensor Pulse Rhythm [Apical] Pulse Strength [Apical] Respiratory Rate 18 18 Respiratory Effort / Characteristics Non-Labored Non-Labored Respiratory Depth Normal Normal Respiratory Pattern Regular Blood Pressure 107/59 L Blood Pressure [Left Arm] 124/57 L Blood Pressure Mean 75 Blood Pressure Mean [Left Arm] 79 Blood Pressure Position Sitting Blood Pressure Position [Left Arm] Pulse Oximetry 98 97 97 Oxygen Delivery Method Room Air Room Air Room Air 08/30/18 11:03 08/30/18 12:00 08/30/18 14:21 Temperature Temperature Source Sepsis Recent Fever Within 48 Hours Sepsis New/Unexplained Change in Mental Status Sepsis Action Taken by Nursing Pulse Rate 73 78 Pulse Rate [Apical] 71 Pulse Rate from SpO2 Sensor 75 Pulse Rhythm [Apical] Pulse Strength [Apical] Respiratory Rate 18 15 20 Respiratory Effort / Characteristics Respiratory Depth Respiratory Pattern Blood Pressure 135/61 130/72 Blood Pressure [Left Arm] 145/75 H Blood Pressure Mean 85 Blood Pressure Mean [Left Arm] 98 Blood Pressure Position Blood Pressure Position [Left Arm] Pulse Oximetry 95 96 99 Oxygen Delivery Method Room Air Room Air 08/30/18 14:26 08/30/18 15:15 08/30/18 15:21 Temperature 37.4 C Temperature Source Oral Sepsis Recent Fever Within 48 Hours Sepsis New/Unexplained Change in Mental Status Sepsis Action Taken by Nursing Pulse Rate Pulse Rate [Apical] 67 64 Pulse Rate from SpO2 Sensor Pulse Rhythm [Apical] Regular Regular Pulse Strength [Apical] Normal Normal Respiratory Rate 16 18 Respiratory Effort / Characteristics Non-Labored Spontaneous Non-Labored Spontaneous Respiratory Depth Normal Normal Respiratory Pattern Blood Pressure Blood Pressure [Left Arm] 130/61 108/61 Blood Pressure Mean Blood Pressure Mean [Left Arm] 84 76 Blood Pressure Position Blood Pressure Position [Left Arm] Lying Sitting Sitting Pulse Oximetry 96 94 Oxygen Delivery Method Room Air Room Air Room Air 08/30/18 15:28 Temperature Temperature Source Sepsis Recent Fever Within 48 Hours Sepsis New/Unexplained Change in Mental Status Sepsis Action Taken by Nursing Pulse Rate Pulse Rate [Apical] 65 Pulse Rate from SpO2 Sensor Pulse Rhythm [Apical] Regular Pulse Strength [Apical] Normal Respiratory Rate 20 Respiratory Effort / Characteristics Respiratory Depth Respiratory Pattern Blood Pressure Blood Pressure [Left Arm] 120/63 Blood Pressure Mean Blood Pressure Mean [Left Arm] 82 Blood Pressure Position Blood Pressure Position [Left Arm] Sitting Pulse Oximetry 94 Oxygen Delivery Method Room Air Home Medications Current Medication List: was personally reviewed by me Laboratory Data Attestation: I reviewed the patient's lab results. Result diagrams: 08/30/18 16:19 08/30/18 10:00 Lab Results 08/30/18 08/30/18 08/30/18 Range/Units 09:53 09:54 10:00 WBC 8.14 (4.8-10.8) K/uL RBC 3.75 L (4.7-6.1) M/uL Hgb 10.1 L (14.0-18.0) g/dL Hct 31.8 L (42-52) % MCV 84.8 (80-100) fL MCH 26.9 (25-34) pg MCHC 31.8 L (32-36) g/dL RDW Std Deviation 47.5 H (36.4-46.3) fL RDW Coeff of Mansi 15.4 H (11.5-14.5) % Plt Count 302 (130-400) K/uL MPV 9.3 (7.4-10.4) fL Immature Gran % (Auto) 0.7 % Neut % (Auto) 60.1 % Lymph % (Auto) 26.2 % [place] % (Auto) 9.7 % Eos % (Auto) 2.7 % Baso % (Auto) 0.6 % Immature Gran # (Auto) 0.06 H (0.00-0.02) K/uL Neut # (Auto) 4.89 (1.4-6.5) K/uL Lymph # (Auto) 2.13 (1.2-3.4) K/uL [place] # (Auto) 0.79 H (0.11-0.59) K/uL Eos # (Auto) 0.22 (0-0.5) K/uL Baso # (Auto) 0.05 (0-0.2) K/uL PT (9.0-12.0) Seconds INR (0.9-1.1) APTT (21.0-31.0) Seconds PTT Ratio Sodium (136-145) mmol/L Potassium (3.5-5.1) mmol/L Chloride (98-107) mmol/L Carbon Dioxide (21-32) mmol/L Anion Gap (3-11) BUN (7-18) mg/dl Creatinine (0.6-1.4) mg/dl Est Cr Clr Drug Dosing ml/min Est GFR ( Amer) Est GFR (Non-Af Amer) BUN/Creatinine Ratio (10-20) Glucose (70-99) mg/dl Calcium (8.5-10.1) mg/dl Total Bilirubin (0.2-1) mg/dl AST (15-37) U/L ALT (12-78) U/L Alkaline Phosphatase (45-117) U/L Total Protein (6.4-8.2) gm/dl Albumin (3.4-5.0) gm/dl Globulin (2.5-4.0) gm/dl Albumin/Globulin Ratio (0.9-2) POC Stool Occult Blood Positive H (Negative) Blood Type O Positive Antibody Screen NEGATIVE Crossmatch See Detail 08/30/18 08/30/18 08/30/18 Range/Units 10:00 10:00 16:19 WBC (4.8-10.8) K/uL RBC (4.7-6.1) M/uL Hgb 9.1 L (14.0-18.0) g/dL Hct 28.6 L (42-52) % MCV (80-100) fL MCH (25-34) pg MCHC (32-36) g/dL RDW Std Deviation (36.4-46.3) fL RDW Coeff of Mansi (11.5-14.5) % Plt Count (130-400) K/uL MPV (7.4-10.4) fL Immature Gran % (Auto) % Neut % (Auto) % Lymph % (Auto) % [place] % (Auto) % Eos % (Auto) % Baso % (Auto) % Immature Gran # (Auto) (0.00-0.02) K/uL Neut # (Auto) (1.4-6.5) K/uL Lymph # (Auto) (1.2-3.4) K/uL [place] # (Auto) (0.11-0.59) K/uL Eos # (Auto) (0-0.5) K/uL Baso # (Auto) (0-0.2) K/uL PT 10.0 (9.0-12.0) Seconds INR 1.0 (0.9-1.1) APTT 25.1 (21.0-31.0) Seconds PTT Ratio 0.9 Sodium 140 (136-145) mmol/L Potassium 4.1 (3.5-5.1) mmol/L Chloride 111 H (98-107) mmol/L Carbon Dioxide 21 (21-32) mmol/L Anion Gap 8.0 (3-11) BUN 55 H (7-18) mg/dl Creatinine 1.38 (0.6-1.4) mg/dl Est Cr Clr Drug Dosing 69.7 ml/min Est GFR ( Amer) 68.1 Est GFR (Non-Af Amer) 58.8 BUN/Creatinine Ratio 40.1 H (10-20) Glucose 165 H (70-99) mg/dl Calcium 9.1 (8.5-10.1) mg/dl Total Bilirubin 0.1 L (0.2-1) mg/dl AST 17 (15-37) U/L ALT 36 (12-78) U/L Alkaline Phosphatase 93 (45-117) U/L Total Protein 6.9 (6.4-8.2) gm/dl Albumin 3.4 (3.4-5.0) gm/dl Globulin 3.5 (2.5-4.0) gm/dl Albumin/Globulin Ratio 1.0 (0.9-2) POC Stool Occult Blood (Negative) Blood Type Antibody Screen Crossmatch Administered Medications Sodium Chloride (Nss 1000ml) 1,000 mls @ 100 mls/hr IV .Q10H CAITIE Stop: 09/29/18 16:02 Last Admin: 08/30/18 16:31 Dose: 100 mls/hr Documented by: [id number] Discontinued Medications Famotidine (Pepcid 20mg Iv Push) 20 mg IV ONE STA Stop: 08/30/18 09:50 Last Admin: 08/30/18 10:09 Dose: 20 mg Documented by: [id number] Hydromorphone HCl (Dilaudid) 0.5 mg IV Q15M PRN PRN Reason: Pain Last Admin: 08/30/18 10:09 Dose: 0.5 mg Documented by: [id number] Sodium Chloride (Nss 1000ml) 1,000 mls @ 100 mls/hr IV .Q10H CAITIE Stop: 08/30/18 19:44 Last Infusion: 08/30/18 16:20 Dose: 0 mls/hr Documented by: [id number] Infusion: 08/30/18 14:16 Dose: 0 mls/hr Documented by: [id number] Admin: 08/30/18 10:09 Dose: 100 mls/hr Documented by: [id number] Pantoprazole Sodium 80 mg/ (Dextrose) 120 mls @ 480 mls/hr IV TODAY@1230 CAITIE Stop: 08/30/18 12:44 Last Infusion: 08/30/18 14:17 Dose: 0 mls/hr Documented by: [id number] Admin: 08/30/18 14:03 Dose: 480 mls/hr Documented by: [id number] Pantoprazole Sodium 40 mg/ (Dextrose) 100 mls @ 20 mls/hr IV Q5H CAITIE Stop: 09/29/18 12:44 Last Infusion: 08/30/18 16:19 Dose: 0 mls/hr Documented by: [id number] Infusion: 08/30/18 14:16 Dose: 0 mls/hr Documented by: [id number] Admin: 08/30/18 14:03 Dose: 20 mls/hr Documented by: [id number] Ioversol (Optiray 320 100ml) 94 ml IV ONCE PRN PRN Reason: Interaction Checking Stop: 09/03/18 10:53 Last Admin: 08/30/18 10:54 Dose: 94 ml Documented by: [id number] Ondansetron HCl (Zofran) 4 mg IV ONE STA Stop: 08/30/18 09:43 Last Admin: 08/30/18 10:09 Dose: 4 mg Documented by: [id number] Imaging Data Radiologist's Impression: Radiology results as stated below per my review and the radiologist's interpretation: CT abd pelvis IV con only CT DOSE: 1031.94 mGycm HISTORY: Pain. Nausea. luq pain gastric bypass, h/o ulcers TECHNIQUE: Multiaxial CT images of the abdomen and pelvis were performed followi ng the use of intravenous contrast. A dose lowering technique was utilized adhering to the principles of ALARA. COMPARISON STUDY: 05/24/2015 FINDINGS: Lung bases are clear. Interval gastroplasty. Liver spleen and pancreas are unremarkable. Nonobstructing mid pole right renal calcification. No evidence for renal hydronephrosis. No evidence for an obstructing urinary tract calculus. Prior hip arthroplasties. Bladder is midline. Nonobstructive bowel pattern. No free fluid within the pelvic cul-de-sac. Normal appendix. IMPRESSION: 1. No acute process of the abdomen or pelvis. 2. Operative findings consistent with a prior gastric bypass procedure. 3. Nonobstructing right renal calcification .4. Otherwise negative study. The above report was generated using voice recognition software. It may contain grammatical, syntax or spelling errors. Electronically signed by: Pj Pineda M.D. 08/30/2018 11:07 AM ECG Data Attestation: I personally reviewed and interpreted this ECG as follows: Indication: other (GI bleed) Rate (beats per minute): 73 Rhythm: normal sinus Findings: no PAC, no PVC, no ST depression, no ST elevation, no acute ischemic change and no ectopy Blood Pressure Blood Pressure Findings: Low blood pressure Blood Pressure Disposition: further management by hospitalist Discharge Plan Visit Data *Final* Discharge Date/Time: 08/30/18 14:21 Chief Complaint: GI Assessment Stated Complaint: BLOODY STOOL, ABD PAIN ED Provider: Reji Juan Discharge Problem: Upper GI bleed, Abdominal pain, LUQ Patient Disposition: Admitted As Inpatient Discharge Instructions Interventions: ED Discharge Assessment Last Done: 08/30/18 14:21 The scribe's documentation has been prepared under my direction and personally reviewed by me in its entirety. I confirm that the note above accurately reflects all work, treatment, procedures, and medical decision making performed by me.
[2018-08-30 10:18] LABS: Basophils # (auto) 0.05 K/uL (0-0.2); Basophils % (auto) 0.6 %; Eosinophils # (auto) 0.22 K/uL (0-0.5); Eosinophils % (auto) 2.7 %; Hematocrit (blood only) 31.8 % (42-52); Hemoglobin 10.1 g/dL (14.0-18.0); Immature Granulocytes # (auto) 0.06 K/uL (0.00-0.02); Immature Granulocytes % (auto) 0.7 %; Lymphocytes # (auto) 2.13 K/uL (1.2-3.4); Lymphocytes % (auto) 26.2 %; Mean Corpuscular Hgb Conc 31.8 g/dL (32-36); Mean Corpuscular Volume 84.8 fL (80-100); Mean Platelet Volume 9.3 fL (7.4-10.4); Monocytes # (auto) 0.79 K/uL (0.11-0.59); Monocytes % (auto) 9.7 %; Neutrophils # (auto) 4.89 K/uL (1.4-6.5); Neutrophils % (auto) 60.1 %; Platelet Count 302 K/uL (130-400); RDW Coefficient of Variation 15.4 % (11.5-14.5); RDW Standard Deviation 47.5 fL (36.4-46.3); Red Blood Count 3.75 M/uL (4.7-6.1); White Blood Count 8.14 K/uL (4.8-10.8)
[2018-08-30 10:34] LABS: Albumin Level 3.4 gm/dl (3.4-5.0); BUN Creatinine Ratio 40.1 (10-20); Calcium 9.1 mg/dl (8.5-10.1); Creatinine Clr Calc Pharmacy 69.7 ml/min; Est GFR (African American) 68.1; Est GFR (Non-African American) 58.8; Potassium 4.1 mmol/L (3.5-5.1)
[2018-08-30 10:37] LABS: Bilirubin,Total 0.1 mg/dl (0.2-1); Globulin 3.5 gm/dl (2.5-4.0); Total Protein 6.9 gm/dl (6.4-8.2)
[2018-08-30 10:39] LABS: Partial Thromboplastin Ratio 0.9; Partial Thromboplastin Time 25.1 Seconds (21.0-31.0)
[2018-08-30] MEDS ORDERED: IOVERSOL 100ml IV PRN (10:54)
--- NOTE | 2018-08-30 11:09 | CT Scan Report ---
CT abd pelvis IV con only CT DOSE: 1031.94 mGycm HISTORY: Pain. Nausea. luq pain gastric bypass, h/o ulcers TECHNIQUE: Multiaxial CT images of the abdomen and pelvis were performed following the use of intrave nous contrast. A dose lowering technique was utilized adhering to the principles of ALARA. COMPARISON STUDY: 05/24/2015 FINDINGS: Lung bases are clear. Interval gastroplasty. Liver spleen and pancreas are unremarkable. No nobstructing mid pole right renal calcification. No evidence for renal hydronephrosis. No evidence fo r an obstructing urinary tract calculus. Prior hip arthroplasties. Bladder is midline. Nonobstructive bowel pattern. No free fluid within the pelvic cul-de-sac. Normal appendix. IMPRESSION: 1. No acute process of the abdomen or pelvis. 2. Operative findings consistent with a prior gastric bypass procedure. 3. Nonobstructing right renal calcification .4. Otherwise negative study. The above report was generated using voice recognition software. It may contain grammatical, syntax or spelling errors. Electronically signed by: Pj Pineda M.D. 08/30/2018 11:07 AM
[2018-08-30] MEDS ORDERED: PANTOprazole 80 MG in DEXTROSE 5% 100 ML IV SCH (12:30)
[2018-08-30] MEDS ORDERED: PANTOprazole 40 MG in DEXTROSE 5% 100 ML IV SCH (12:45)
--- NOTE | 2018-08-30 13:10 | Gastrointestinal Consultation ---
Date of Consultation August 30, 2018 Assessment & Plan (1) Upper GI bleed: 53 year old male with history of RYGB, resultant anastomic ulceration in 2017 who presents for epigastric abd pain, dark tarry stool x 1 episodes this AM. No vomiting. He had 4 slices of cheese at 0600, about 12 oz of water at 0800 - NPO - IV PPI bolus and drip - Trend H&H - Transfuse PRN - Plan for EGD today Thank you for allowing us to participate in the care of this patient. Please call with any acute changes, questions or concerns. Please see addendum below with additional recommendation from my supervising physician. Present on Admission?: Yes Supervising Physician Co-Signing Physician Notes Attg add: I interviewed and examined pt, reviewed chart and labs. Pt with h/o RYGb now with abrupt onset abd pain, dark stool. BP stable, BUN increased, anemic. Exam sig for pallow; CV RRR, Resp CTA. EGD today, further recs post EGD. History of Present Illness Reason for Consultation: melena, epigastric abd pain History of Present Illness 53 year old male with history of T2DM, dyslipidemia, obestiy s/p RYGB w/ prior anastomatic ulceration in 2017 who presents to the ED for worsening epigastric abdominal pain and dark, tarry stools - GI asked to evaluate for melena. pt was seen and evaluated, chart reviewed. Family at bedside. Notes return of upper abd pain last evening. Associated with mild nausea but no vomiting. Went to bed w/ persistent pain. Upon wakig up this AM, was hungry. Had 4 slices of cheese at 0600. After went to move his bowels and noted a significant amount of dark, tarry stool. No BRBPR. No vomiting, specifically no report of coffee ground emesis or hematemesis NSAIDs none ETOH 5-6 drinks a week AC none Steroids none Colonoscopy 2018: diverticulosis, 1 mm polyp EGD 2016: zhao's, healed anastomic ulceration, evidence of RYGB Allergies Allergy/AdvReac Type Severity Reaction Status Date / Time Penicillins Allergy Unknown joints Verified 08/30/18 09:28 swell; "serum sickness" Home Medications Home Medications Medication Instructions Recorded Confirmed Type clindamycin HCl 300 mg PO DIRECTED PRN 08/30/18 08/30/18 History cyanocobalamin (vitamin B-12) 1,000 mcg IM UD 08/30/18 08/30/18 History fluoxetine 80 mg PO DAILY 08/30/18 08/30/18 History lisinopril 10 mg PO HS 08/30/18 08/30/18 History pantoprazole 40 mg PO DAILY 08/30/18 08/30/18 History Patient History Medical History Diabetes (Chronic) GERD (gastroesophageal reflux disease) (Chronic) Surgical History Gastric bypass status for obesity (Resolved) Social History Preferred Language: Yakut Communication Ability: Effective 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 Beliefs That Will Affect Care: None Current Living Situation: Spouse Other Information That Helps Us Care for You: No Feels Safe at Home: Yes Safety Concerns: Feels Safe At This Time Smoking Status: Never smoker Second Hand Exposure: Yes (As a child.) Hx Alcohol Use: Yes Alcohol type: beer Hx Substance Use: No Review of Systems Constitutional: no fever, no chills and no fatigue Respiratory: no cough, no dyspnea, no snoring and no wheezing Cardiovascular: no chest pain, no radiating jaw, neck or arm pain, no dyspnea on exertion and no claudication Gastrointestinal: + abdominal pain and + melena; no belching, no bloating, no early satiety, no heartburn, no nausea, no vomiting, no coffee ground emesis, no hematemesis, no dysphagia, no cramping, no change in bowel habits, no change in stools, no diarrhea/loose stools and no blood in stools Physical Exam Constitutional: well developed, well nourished and + well hydrated; no acute distress and not ill appearing Respiratory: normal respiratory effort, lungs clear to auscultation Cardiovascular: RRR, no murmur, no edema Gastrointestinal (Abdomen): Inspection/Auscultation: normal bowel sounds Percussion/Palpation: + abdomen tender and abdomen soft; no guarding and abdomen not rigid Skin: no rashes, warm and dry Results & Data Vital Signs (Past 12 Hours) Vital Signs Temp Pulse Pulse Resp BP BP Pulse Ox 08/30/18 12:00 73 15 135/61 96 08/30/18 11:03 71 18 145/75 H 95 08/30/18 10:05 73 18 124/57 L 97 08/30/18 10:04 97 08/30/18 09:14 36.9 C 84 18 107/59 L 98 Laboratory Results 08/30/18 08/30/18 08/30/18 Range/Units 10:00 10:00 10:00 WBC 8.14 (4.8-10.8) K/uL RBC 3.75 L (4.7-6.1) M/uL Hgb 10.1 L (14.0-18.0) g/dL Hct 31.8 L (42-52) % MCV 84.8 (80-100) fL MCH 26.9 (25-34) pg MCHC 31.8 L (32-36) g/dL RDW Std Deviation 47.5 H (36.4-46.3) fL RDW Coeff of Mansi 15.4 H (11.5-14.5) % Plt Count 302 (130-400) K/uL MPV 9.3 (7.4-10.4) fL Immature Gran % (Auto) 0.7 % Neut % (Auto) 60.1 % Lymph % (Auto) 26.2 % [place] % (Auto) 9.7 % Eos % (Auto) 2.7 % Baso % (Auto) 0.6 % Immature Gran # (Auto) 0.06 H (0.00-0.02) K/uL Neut # (Auto) 4.89 (1.4-6.5) K/uL Lymph # (Auto) 2.13 (1.2-3.4) K/uL [place] # (Auto) 0.79 H (0.11-0.59) K/uL Eos # (Auto) 0.22 (0-0.5) K/uL Baso # (Auto) 0.05 (0-0.2) K/uL PT 10.0 (9.0-12.0) Seconds INR 1.0 (0.9-1.1) APTT 25.1 (21.0-31.0) Seconds PTT Ratio 0.9 Sodium 140 (136-145) mmol/L Potassium 4.1 (3.5-5.1) mmol/L Chloride 111 H (98-107) mmol/L Carbon Dioxide 21 (21-32) mmol/L Anion Gap 8.0 (3-11) BUN 55 H (7-18) mg/dl Creatinine 1.38 (0.6-1.4) mg/dl Est Cr Clr Drug Dosing 69.7 ml/min Est GFR ( Amer) 68.1 Est GFR (Non-Af Amer) 58.8 BUN/Creatinine Ratio 40.1 H (10-20) Glucose 165 H (70-99) mg/dl Calcium 9.1 (8.5-10.1) mg/dl Total Bilirubin 0.1 L (0.2-1) mg/dl AST 17 (15-37) U/L ALT 36 (12-78) U/L Alkaline Phosphatase 93 (45-117) U/L Total Protein 6.9 (6.4-8.2) gm/dl Albumin 3.4 (3.4-5.0) gm/dl Globulin 3.5 (2.5-4.0) gm/dl Albumin/Globulin Ratio 1.0 (0.9-2) POC Stool Occult Blood (Negative) Blood Type Antibody Screen 08/30/18 08/30/18 Range/Units 09:54 09:53 WBC (4.8-10.8) K/uL RBC (4.7-6.1) M/uL Hgb (14.0-18.0) g/dL Hct (42-52) % MCV (80-100) fL MCH (25-34) pg MCHC (32-36) g/dL RDW Std Deviation (36.4-46.3) fL RDW Coeff of Mansi (11.5-14.5) % Plt Count (130-400) K/uL MPV (7.4-10.4) fL Immature Gran % (Auto) % Neut % (Auto) % Lymph % (Auto) % [place] % (Auto) % Eos % (Auto) % Baso % (Auto) % Immature Gran # (Auto) (0.00-0.02) K/uL Neut # (Auto) (1.4-6.5) K/uL Lymph # (Auto) (1.2-3.4) K/uL [place] # (Auto) (0.11-0.59) K/uL Eos # (Auto) (0-0.5) K/uL Baso # (Auto) (0-0.2) K/uL PT (9.0-12.0) Seconds INR (0.9-1.1) APTT (21.0-31.0) Seconds PTT Ratio Sodium (136-145) mmol/L Potassium (3.5-5.1) mmol/L Chloride (98-107) mmol/L Carbon Dioxide (21-32) mmol/L Anion Gap (3-11) BUN (7-18) mg/dl Creatinine (0.6-1.4) mg/dl Est Cr Clr Drug Dosing ml/min Est GFR ( Amer) Est GFR (Non-Af Amer) BUN/Creatinine Ratio (10-20) Glucose (70-99) mg/dl Calcium (8.5-10.1) mg/dl Total Bilirubin (0.2-1) mg/dl AST (15-37) U/L ALT (12-78) U/L Alkaline Phosphatase (45-117) U/L Total Protein (6.4-8.2) gm/dl Albumin (3.4-5.0) gm/dl Globulin (2.5-4.0) gm/dl Albumin/Globulin Ratio (0.9-2) POC Stool Occult Blood Positive H (Negative) Blood Type O Positive Antibody Screen NEGATIVE
--- NOTE | 2018-08-30 13:34 | Anesthesiology Consultation ---
Date of Service August 30, 2018 Assessment & Plan (1) Encounter for pre-operative examination: Chart Review Chart Review: Acceptable Risk for Surgery History Surgery Operation Date: 08/30/18 09:30 Proposed Procedures p Esophagogastroduodenoscopy Dr Daiana Roper Height/Weight Height: 5 ft 6 in Weight: 98.9 kg Allergies Allergy/AdvReac Type Severity Reaction Status Date / Time Penicillins Allergy Unknown joints Verified 08/30/18 09:28 swell; "serum sickness" Medications Home Medications Medication Instructions Recorded Confirmed Last Taken clindamycin HCl 300 mg PO DIRECTED PRN 08/30/18 08/30/18 08/28/18 cyanocobalamin (vitamin B-12) 1,000 mcg IM UD 08/30/18 08/30/18 Unknown fluoxetine 80 mg PO DAILY 08/30/18 08/30/18 08/29/18 lisinopril 10 mg PO HS 08/30/18 08/30/18 08/29/18 pantoprazole 40 mg PO DAILY 08/30/18 08/30/18 08/29/18 Active Medications Generic Name Dose Route Start Last Admin Trade Name Freq PRN Reason Stop Dose Admin Hydromorphone HCl 0.5 mg 08/30/18 09:42 08/30/18 10:09 Dilaudid IV 0.5 mg Q15M PRN Administration Pain Sodium Chloride 1,000 mls @ 100 mls/hr 08/30/18 09:45 08/30/18 10:09 Nss 1000ml IV 08/30/18 19:44 100 mls/hr .Q10H CAITIE Administration Ioversol 94 ml 08/30/18 10:54 08/30/18 10:54 Optiray 320 100ml IV 09/03/18 10:53 94 ml ONCE PRN Administration Interaction Checking Past Medical History Medical History Diabetes (Chronic) GERD (gastroesophageal reflux disease) (Chronic) Past Surgical History Surgical History Gastric bypass status for obesity (Resolved) Past Anesthesia History No Hx of Anesthesia Complications History of PONV No Social History Smoking Status: Never smoker Physical Exam Vital Signs Last Vital Signs Temp 36.9 C 08/30/18 09:14 Pulse 78 08/30/18 13:28 Resp 20 08/30/18 13:28 BP 130/72 08/30/18 13:28 Pulse Ox 99 08/30/18 13:28 Testing Electrocardiogram Date: 08/30/18 Findings: + NSR @ (73) Laboratory Results 08/30/18 10:00 08/30/18 10:00 Blood Type O Positive 08/30/18 09:53 Antibody Screen NEGATIVE 08/30/18 09:53 PT 10.0 Seconds (9.0-12.0) 08/30/18 10:00 INR 1.0 (0.9-1.1) 08/30/18 10:00 APTT 25.1 Seconds (21.0-31.0) 08/30/18 10:00
[2018-08-30] MEDS ORDERED: PROPOFOL IV EMULSION 10 MG/ML 20 ML VIAL IV ONE (14:39)
[2018-08-30] MEDS ORDERED: LIDOCAINE HCL 2% 2 ML VIAL/AMP(20MG/ML) INFIL ONE (14:39)
--- NOTE | 2018-08-30 14:44 | History & Physical Report ---
Date of Service August 30, 2018 Assessment & Plan (1) Upper GI bleed: (2) Abdominal pain, LUQ: Patient with hx gastric bypass in 2016 and previous gastric ulcer at anastomosis presented to ER with complaint of left upper quadrant pain starting yesterday and one episode of melena today. In ER patient afebrile, P: 84, RR: 18, BP 107/59, 124/57, 98% on room air. WBC: 8, H/H: 03/13 (hgb was 12.6 in 07/26/17), BUN: 55, Cr: 1.38. Heme positive stool CT abdomen/pelvis: No acute findings. EKG: NSR -npo -trend H&H Q6H -type and cross PRBCs and hold -IVF -protonix drip and bolus -GI consult - change control manager aware and seeing pt in ER, planning for EGD this afternoon (3) HTN (hypertension): Stable -hold oral lisinopril at this time -monitor BP (4) HLD (hyperlipidemia): Pt stopped taking statin medication (5) Diabetes mellitus, type II: Diet controlled Glucose: 165 -A1c in AM (6) Depression: -hold prozac while npo DVT Prophylaxis -SCDs Full Code Follows with Dr Cortez for routine care Pt was seen with Dr Potter. See addendum History of Present Illness Chief Complaint: LUQ abdominal pain Primary Care Provider: Reji Cortez MD Pt is 53 y/o M with PMH gastric bypass in 09/2005 with subsequent gastric ulcer at anastomosis site, HLD, GERD, DM II presented to ER with complaint of left upper quadrant pain x 1 day. Patient states yesterday started with left upper quadrant pain that was nonradiating and seemed worse after eating. Reports history of gastric ulcer s/p gastric bypass surgery and pain is located in the same area as when he had gastric ulcer. He states this morning had one episode of black formed stool. Last ate at 6:30 this morning and reports he ate 4 pieces of cheese. Last water intake approximately 8:00 AM approximately 8-12 ounces. Denies any vomiting. Drinks 1 gallon of iced tea a day. Drinks 12-16 ounces of coffee twice a week. Denies tobacco use, denies alcohol use, NSAID or aspirin use. Denies fever/chills, diaphoresis, hematochezia, [place], dizziness, syncope, vision changes, neck pain, CP, SOB, orthopnea, palpitations, cough, sore throat, choking, otalgia, rhinorrhea, paresthesias, weakness, extremity weakness, extremity edema, rashes, urinary symptoms. Most recent scopes: History EGD 04/2017: Guzmán's esophagus, healed anastomotic erosion History colonoscopy 05/2016 : Serrated adenomatous polyp, diverticulosis Allergies Allergy/AdvReac Type Severity Reaction Status Date / Time Penicillins Allergy Unknown joints Verified 08/30/18 09:28 swell; "serum sickness" Home Medications Home Medications Medication Instructions Recorded Confirmed Type clindamycin HCl 300 mg PO DIRECTED PRN 08/30/18 08/30/18 History cyanocobalamin (vitamin B-12) 1,000 mcg IM UD 08/30/18 08/30/18 History fluoxetine 80 mg PO HS 08/30/18 08/31/18 History lisinopril 10 mg PO HS 08/30/18 08/30/18 History pantoprazole 40 mg PO BID 30 Days #60 tab 08/31/18 Rx Past Med/Surg History Medical History HLD (hyperlipidemia) (Chronic) HTN (hypertension) (Chronic) Depression (Chronic) Diabetes mellitus, type II (Chronic) Chronic hip pain (Chronic) Major depressive disorder, recurrent severe without psychotic features (Chronic) Umbilical hernia, incarcerated (Resolved 07/17/13) Diabetes (Chronic) GERD (gastroesophageal reflux disease) (Chronic) Surgical History 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, avascular necrosis 2012, revision secondary to infection History of left hip replacement (Chronic) 2008, avascular necrosis History of carpal tunnel surgery (Chronic) History of colonoscopy (Chronic) History colonoscopy 05/2016 : Serrated adenomatous polyp, diverticulosis History of esophagogastroduodenoscopy (EGD) (Chronic) History EGD 04/2017: Guzmán's esophagus, healed anastomotic erosion Status post gastric bypass for obesity (Chronic) Gastric bypass status for obesity (Resolved) Social History Preferred Language: [place]i Communication Ability: Effective Card Player Required: No Beliefs That Will Affect Care: None Current Living Situation: Spouse Other Information That Helps Us Care for You: No Feels Safe at Home: Yes Safety Concerns: Feels Safe At This Time Smoking Status: Never smoker Second Hand Exposure: Yes (As a child.) Hx Alcohol Use: Yes Alcohol type: beer Hx Substance Use: No Review of Systems Review of Systems: All systems reviewed & are unremarkable except as noted in HPI & below Physical Exam Physical Exam: General: no acute distress, WDWN, non-toxic appearing Head: normocephalic, atraumatic Eyes: conjunctiva non-injected, anicteric ENT: normal inspection external ears, nose, mucous membranes moist Neck: supple, trachea midline Lungs: clear, no respiratory distress, no wheezing/rhonchi/rales CV: RRR, no murmur,no pretibial edema Abd: normal BS, soft, mild tenderness LUQ without rebound or guarding Ext: no cyanosis, no calf tenderness Neuro: A&O x 3, no focal deficits noted, normal affect Skin: warm, dry, pale Results & Data Vital Signs (Past 12 Hours) Vital Signs Temp Pulse Pulse Resp BP BP Pulse Ox 08/30/18 14:26 37.4 C 67 16 130/61 96 08/30/18 14:21 78 20 130/72 99 08/30/18 12:00 73 15 135/61 96 08/30/18 11:03 71 18 145/75 H 95 08/30/18 10:05 73 18 124/57 L 97 08/30/18 10:04 97 08/30/18 09:14 36.9 C 84 18 107/59 L 98 Laboratory Results Short CBC 08/30/18 Range/Units 10:00 WBC 8.14 (4.8-10.8) K/uL Hgb 10.1 L (14.0-18.0) g/dL Hct 31.8 L (42-52) % Plt Count 302 (130-400) K/uL BMP 08/30/18 10:00 Sodium 140 Potassium 4.1 Chloride 111 H Carbon Dioxide 21 BUN 55 H Creatinine 1.38 Glucose 165 H Calcium 9.1 Liver Function 08/30/18 Range/Units 10:00 Total Bilirubin 0.1 L (0.2-1) mg/dl AST 17 (15-37) U/L ALT 36 (12-78) U/L Alkaline Phosphatase 93 (45-117) U/L Albumin 3.4 (3.4-5.0) gm/dl Diagnostic Findings CT ABD/PELVIS: IMPRESSION: 1. No acute process of the abdomen or pelvis. 2. Operative findings consistent with a prior gastric bypass procedure. 3. Nonobstructing right renal calcification 4. Otherwise negative study. ECG Rate (beats per minute): 73 Rhythm: normal sinus Supervising Physician Co-Signing Physician Notes Pt was seen and examined. Agreed with Cornelia CAMARENA exam, assessment and plan. 53 y/o M with [facility] gastric bypass in 09/2005 with subsequent gastric ulcer at anastomosis site, HLD, GERD, DM II presented to ER with complaint of left upper quadrant pain. He said that he had on episode of black stool. CT abd/pelvis showed operative findings consistent with a prior gastric bypass procedure otherwise negative. Hbg on admission 10.1, then dropped to 9.1. S/p EGD by GI showed irregular Z line, otherwise unremarkable EGD. There was a gastro-enteric anastamosis. There was a large cratered ulcer with two flat pigmented spots on the gastric side of the anastamosis. Will start on clear liquid diet and ad vanced as tolerated. PPI oral BID. Monitor H/H. Continue monitor closely. MD Tariq
--- NOTE | 2018-08-30 15:09 | GI REPORT ---
Patient Name: Yair Shaw Procedure Date: 08/30/2018 2:38 PM Date of : 1965 Admit Type: Emergency Department Age: 53 Gender: Male Attending MD: Mara Roper MD Procedure: Upper GI endoscopy Providers: Mara Roper MD Referring MD: Reji Cortez Indications: Melena Medicines: See the Anesthesia note for documentation of the administered medications Complications: No immediate complications. Estimated Blood Loss: Estimated blood loss: none. Procedure: Pre-Anesthesia Assessment: - ASA Grade Assessment: III - A patient with severe systemic disease. After obtaining informed consent, the endoscope was passed under direct vision. Throughout the procedure, the patient's blood pressure, pulse, and oxygen saturations were monitored continuously. The Endoscope was introduced through the mouth, and advanced to the afferent and efferent jejunal loops. The upper GI endoscopy was accomplished without difficulty. The patient tolerated the procedure well. Findings: Irregular Z line, otherwise unremarkable EGD. There was a gastro-enteric anastamosis. There was a large cratered ulcer with two flat pigmented spots on the gastric side of the anastamosis. The stomach pouch was normal. The small intestine was normal. Impression: - Anastamotic ulcer with flat pigmented spots. Recommendation: - Discharge patient to floor. - He is at low risk for continued GIB - may begin clears, oral Protonix (IV PPI is on backorder) BID today and PO tomorrow, hgb daily. Anticipate d/c home tomorrow if no further bleeding overnight. Mara Roper M.D. Mara Roper MD 08/30/2018 3:08:26 PM This report has been signed electronically. Note Initiated On: 08/30/2018 2:38 PM Number of Addenda: 0 I attest to the content of the Intraoperative Record and orders documented therein, exceptions below {[id number]}
--- NOTE | 2018-08-30 15:16 | Anesthesiology Progress Note ---
Date of Service August 30, 2018 Anesthesia Post Procedure Vital Signs Vital Signs: Temp Pulse Pulse Resp BP BP Pulse Ox 08/30/18 14:26 37.4 C 67 16 130/61 96 08/30/18 14:21 78 20 130/72 99 08/30/18 12:00 73 15 135/61 96 08/30/18 11:03 71 18 145/75 H 95 08/30/18 10:05 73 18 124/57 L 97 08/30/18 10:04 97 08/30/18 09:14 36.9 C 84 18 107/59 L 98 Pain Intensity Left Abdomen: Pain Intensity: 2
[2018-08-30] MEDS ORDERED: ONDANSETRON INJ 2 MG/ML 2 ML VIAL IV PRN (16:03)
[2018-08-30 16:28] LABS: Hematocrit (blood only) 28.6 % (42-52); Hemoglobin 9.1 g/dL (14.0-18.0)
[2018-08-30] MEDS: SODIUM CHLORIDE 0.9% 1000ML 1,000 ML IV SCH (16:31)
[2018-08-30] MEDS: PANTOprazole 40 MG TAB PO SCH (20:31)
[2018-08-30 22:28] LABS: Hematocrit (blood only) 28.2 % (42-52); Hemoglobin 8.8 g/dL (14.0-18.0)
[2018-08-31] MEDS: SODIUM CHLORIDE 0.9% 1000ML 1,000 ML IV SCH ×2 (01:57→11:14)
[2018-08-31 04:18] LABS: Hematocrit (blood only) 27.7 % (42-52); Hemoglobin 8.6 g/dL (14.0-18.0); Mean Corpuscular Volume 85.5 fL (80-100); Mean Platelet Volume 9.2 fL (7.4-10.4); Platelet Count 268 K/uL (130-400); RDW Coefficient of Variation 15.4 % (11.5-14.5); RDW Standard Deviation 47.9 fL (36.4-46.3); Red Blood Count 3.24 M/uL (4.7-6.1); White Blood Count 5.48 K/uL (4.8-10.8)
[2018-08-31 04:36] LABS: BUN Creatinine Ratio 27.2 (10-20); Creatinine Clr Calc Pharmacy 67.3 ml/min; Est GFR (African American) 64.7; Est GFR (Non-African American) 55.8; Potassium 4.3 mmol/L (3.5-5.1)
[2018-08-31] MEDS: PANTOprazole 40 MG TAB PO SCH ×2 (07:49→19:57)
[2018-08-31 08:23] LABS: Estimated Average Glucose 157 mg/dl; Hemoglobin A1C 7.1 % (4.5-5.6)
--- NOTE | 2018-08-31 10:48 | Hospitalist Progress Note ---
Date of Service August 31, 2018 Assessment & Plan (1) Upper GI bleed: Presented with melena. Not using any aspirin, nonsteroidal anti-inflammatory drugs, or other gastric irritants. Hemoglobin was 10.1 at time of admission. GI consulted. EGD demonstrated recurrent anastomotic ulcer [place] that risk of rebleeding was low. Pantoprazole increased to 40 mg twice daily. Hemoglobin this morning = 8.6. Continue to follow H&H. (2) HTN (hypertension): Lisinopril held because of GI bleed. (3) Diabetes mellitus, type II: Hemoglobin A1c 7.1. Fasting blood sugar this morning = 126. (4) Depression: Resume fluoxetine. (5) DVT prophylaxis: No anticoagulants due to GI bleed. SCD's. Ambulate. (6) Discharge planning issues: Anticipated discharge to home. Family Medicine follow-up with Dr. Cortez. Subjective Recheck for upper GI bleed. Patient seen in his room around 10:00. Doing well. Feels a bit tired. No abdominal pain, nausea, vomiting. No melena or hematochezia. No fever. No chest pain. No cough or shortness of breath. Ambulating in room. Review of Systems Review of Systems: As noted above Physical Exam Constitutional: no acute distress Respiratory: no respiratory distress Auscultation: lungs clear to auscultation bilaterally Cardiovascular: Rate/Rhythm: regular rate and regular rhythm Heart Sounds: no gallop Vessels: no JVD Extremities: no calf tenderness and no edema Gastrointestinal (Abdomen): normal bowel sounds, soft, nontender, no hepatosplenomegaly Skin: no rashes, warm and dry Psychiatric: Orientation: alert and oriented x 3 Results & Data Vital Signs (Past 12 Hours) Vital Signs Temp Pulse Pulse Resp BP Pulse Ox 08/31/18 07:48 36.8 C 61 16 113/72 95 08/31/18 07:26 64 08/31/18 04:26 37 C 69 16 108/62 96 08/31/18 01:03 58 L 08/30/18 23:34 74 109/71 08/30/18 23:06 36.9 C 63 18 85/42 L 96 Laboratory Results Laboratory Results - last 24 hr 08/31/18 08/31/18 08/31/18 03:52 03:52 03:52 WBC 5.48 RBC 3.24 L Hgb 8.6 L Hct 27.7 L MCV 85.5 MCH 26.5 MCHC 31.0 L RDW Std Deviation 47.9 H RDW Coeff of Mansi 15.4 H Plt Count 268 MPV 9.2 Sodium 143 Potassium 4.3 Chloride 116 H Carbon Dioxide 25 Anion Gap 2.0 L BUN 39 H Creatinine 1.44 H Est Cr Clr Drug Dosing 67.3 Est GFR ( Amer) 64.7 Est GFR (Non-Af Amer) 55.8 BUN/Creatinine Ratio 27.2 H Glucose 116 H POC Glucose Estimat Average Glucose 157 Hemoglobin A1c 7.1 H Calcium 8.0 L 08/31/18 07:46 WBC RBC Hgb Hct MCV MCH MCHC RDW Std Deviation RDW Coeff of Mansi Plt Count MPV Sodium Potassium Chloride Carbon Dioxide Anion Gap BUN Creatinine Est Cr Clr Drug Dosing Est GFR ( Amer) Est GFR (Non-Af Amer) BUN/Creatinine Ratio Glucose POC Glucose 126 H Estimat Average Glucose Hemoglobin A1c Calcium
--- NOTE | 2018-08-31 15:54 | Gastroenterology Progress Note ---
Date of Service August 31, 2018 Subjective Pt without complaint today. He is melisa PO, no BM today. VS stable. Abd soft and NT. Labs show declining BUN, hgb that is slowly drifting down. He had low risk stigmata but I have recommended to pt and hospitalist that he remain in hospital for inpt monitoring for evidence of recurrent bleeding. If BUN cont to trend down and hgb remains above 8, I think he can be discharged tomorrow with plans for 8 week course of BID PPI and outpt scope in 2 mos. Given his rygb, will give him IV iron. Results & Data Vital Signs (Past 12 Hours) Vital Signs Temp Pulse Pulse Pulse Pulse Resp BP 08/31/18 15:00 37 C 66 18 106/51 L 08/31/18 11:42 36.7 C 63 16 111/54 L 08/31/18 11:02 36.8 C 64 61 16 113/72 08/31/18 07:48 36.8 C 61 16 113/72 08/31/18 07:26 64 08/31/18 04:26 37 C 69 16 108/62 Pulse Ox 08/31/18 15:00 95 08/31/18 11:42 97 08/31/18 11:02 95 08/31/18 07:48 95 08/31/18 07:26 08/31/18 04:26 96
[2018-08-31] MEDS ORDERED: IRON SUCROSE 100 MG in 0.9 % SODIUM CHLORIDE 100 ML IV ONE (18:00)
[2018-08-31] MEDS ORDERED: FLUOXETINE HCL 20 MG CAP PO SCH (21:00)
[2018-09-01] MEDS: PANTOprazole 40 MG TAB PO SCH (07:49)
[2018-09-01 09:25] LABS: Hemoglobin 8.3 g/dL (14.0-18.0); Mean Corpuscular Hgb Conc 30.7 g/dL (32-36); Mean Corpuscular Volume 85.7 fL (80-100); Mean Platelet Volume 8.9 fL (7.4-10.4); Platelet Count 258 K/uL (130-400); RDW Coefficient of Variation 15.5 % (11.5-14.5); RDW Standard Deviation 48.2 fL (36.4-46.3); Red Blood Count 3.15 M/uL (4.7-6.1); White Blood Count 5.68 K/uL (4.8-10.8)
[2018-09-01 09:35] LABS: Basophils # (auto) 0.03 K/uL (0-0.2); Basophils % (auto) 0.5 %; Eosinophils # (auto) 0.19 K/uL (0-0.5); Eosinophils % (auto) 3.5 %; Immature Granulocytes # (auto) 0.01 K/uL (0.00-0.02); Immature Granulocytes % (auto) 0.2 %; Lymphocytes # (auto) 1.42 K/uL (1.2-3.4); Monocytes % (auto) 7.3 %; Neutrophils # (auto) 3.41 K/uL (1.4-6.5); Neutrophils % (auto) 62.5 %
[2018-09-01 10:02] LABS: BUN Creatinine Ratio 16.1 (10-20); Calcium 8.1 mg/dl (8.5-10.1); Creatinine Clr Calc Pharmacy 70.8 ml/min; Est GFR (African American) 68.7; Est GFR (Non-African American) 59.3
--- NOTE | 2018-09-01 11:15 | Gastroenterology Progress Note ---
Date of Service September 01, 2018 Subjective No events, complaints. Palmer PO. Received IV iron. No BM. Abd soft. Labs show stable hgb. OK for d/c today, plan d/c on BID PPI and repeat EGD in 8 weeks. Results & Data Vital Signs (Past 12 Hours) Vital Signs Temp Pulse Resp BP Pulse Ox 09/01/18 07:14 36.6 C 68 18 114/68 95 09/01/18 00:09 36.8 C 64 18 118/64 95
--- NOTE | 2018-09-01 12:49 | Hospitalist Progress Note ---
Date of Service September 01, 2018 Assessment & Plan (1) Upper GI bleed: Presented with melena. Not using any aspirin, nonsteroidal anti-inflammatory drugs, or other gastric irritants. Hemoglobin was 10.1 at time of admission. GI consulted. EGD demonstrated recurrent anastomotic ulcer [place] that risk of rebleeding was low. Pantoprazole increased to 40 mg twice daily. Hemoglobin this morning = 8.3. No oral Fe due to gastric ulcer. Received IV Fe. Continue to follow H&H and Fe levels. (2) HTN (hypertension): Continue lisinopril. (3) Diabetes mellitus, type II: Diet controlled DM type 2 since gastric bypass. Hemoglobin A1c 7.1. Fasting blood sugar 08/31 = 126. Importance of weight control and exercise discussed. Follow as outpatient. (4) Depression: Continue fluoxetine. (5) DVT prophylaxis: No anticoagulants due to GI bleed. SCD's. Ambulate. (6) Discharge planning issues: Discharge to home. Family Medicine follow-up with Dr. Cortez. Subjective Recheck for upper GI bleed. Patient seen in his room around 11:00. Doing well. No abdominal pain, nausea, vomiting. No melena or hematochezia. No fever. No chest pain. No cough or shortness of breath. Ambulating. Physical Exam Constitutional: no acute distress Respiratory: no respiratory distress Auscultation: lungs clear to auscultation bilaterally Cardiovascular: Rate/Rhythm: regular rate and regular rhythm Heart Sounds: no gallop Vessels: no JVD Extremities: no calf tenderness and no edema Gastrointestinal (Abdomen): normal bowel sounds, soft, nontender, no hepatosplenomegaly Skin: no rashes, warm and dry Psychiatric: Orientation: alert and oriented x 3 Results & Data Vital Signs (Past 12 Hours) Vital Signs Temp Pulse Resp BP Pulse Ox 09/01/18 07:14 36.6 C 68 18 114/68 95
--- NOTE | 2018-09-02 09:05 | Discharge Summary ---
Date of Service September 04, 2018 Admission HPI Per Admitting Provider Pt is 53 y/o M with PMH gastric bypass in 09/2005 with subsequent gastric ulcer at anastomosis site, HLD, GERD, DM II presented to ER with complaint of left upper quadrant pain x 1 day. Patient states yesterday started with left upper quadrant pain that was nonradiating and seemed worse after eating. Reports history of gastric ulcer s/p gastric bypass surgery and pain is located in the same area as when he had gastric ulcer. He states this morning had one episode of black formed stool. Last ate at 6:30 this morning and reports he ate 4 pieces of cheese. Last water intake approximately 8:00 AM approximately 8-12 ounces. Denies any vomiting. Drinks 1 gallon of iced tea a day. Drinks 12-16 ounces of coffee twice a week. Denies tobacco use, denies alcohol use, NSAID or aspirin use. Denies fever/chills, diaphoresis, hematochezia, [place], dizziness, syncope, vision changes, neck pain, CP, SOB, orthopnea, palpitations, cough, sore throat, choking, otalgia, rhinorrhea, paresthesias, weakness, extremity weakness, extremity edema, rashes, urinary symptoms. Most recent scopes: History EGD 04/2017: Guzmán's esophagus, healed anastomotic erosion History colonoscopy 05/2016 : Serrated adenomatous polyp, diverticulosis Discharge Data Consultations 08/30/18 11:43 ED Decision to Admit Stat 08/30/18 16:03 Consult Gastroenterology Routine Procedures Performed Operation Date: 08/30/18 09:30 Actual Procedures p Esophagogastroduodenoscopy - Mara Roper
--- NOTE | 2018-09-03 06:28 | Discharge Summary ---
Date of Service Date of Admission: 08/30/18 Date of Discharge: 09/01/18 Admission HPI Per Admitting Provider Pt is 53 y/o M with PMH gastric bypass in 09/2005 with subsequent gastric ulcer at anastomosis site, HLD, GERD, DM II presented to ER with complaint of left upper quadrant pain x 1 day. Patient states yesterday started with left upper quadrant pain that was nonradiating and seemed worse after eating. Reports history of gastric ulcer s/p gastric bypass surgery and pain is located in the same area as when he had gastric ulcer. He states this morning had one episode of black formed stool. Last ate at 6:30 this morning and reports he ate 4 pieces of cheese. Last water intake approximately 8:00 AM approximately 8-12 ounces. Denies any vomiting. Drinks 1 gallon of iced tea a day. Drinks 12-16 ounces of coffee twice a week. Denies tobacco use, denies alcohol use, NSAID or aspirin use. Denies fever/chills, diaphoresis, hematochezia, [place], dizziness, syncope, vision changes, neck pain, CP, SOB, orthopnea, palpitations, cough, sore throat, choking, otalgia, rhinorrhea, paresthesias, weakness, extremity weakness, extremity edema, rashes, urinary symptoms. Most recent scopes: History EGD 04/2017: Guzmán's esophagus, healed anastomotic erosion History colonoscopy 05/2016 : Serrated adenomatous polyp, diverticulosis Admission Exam Per Admitting Provider General: no acute distress, WDWN, non-toxic appearing Head: normocephalic, atraumatic Eyes: conjunctiva non-injected, anicteric ENT: normal inspection external ears, nose, mucous membranes moist Neck: supple, trachea midline Lungs: clear, no respiratory distress, no wheezing/rhonchi/rales CV: RRR, no murmur,no pretibial edema Abd: normal BS, soft, mild tenderness LUQ without rebound or guarding Ext: no cyanosis, no calf tenderness Neuro: A&O x 3, no focal deficits noted, normal affect Skin: warm, dry, pale Principal Diagnosis upper GI bleed due to anastomotic gastric ulcer Discharge Data Allergies Allergy/AdvReac Type Severity Reaction Status Date / Time Penicillins Allergy Unknown joints Verified 08/30/18 09:28 swell; "serum sickness" Consultations 08/30/18 11:43 ED Decision to Admit Stat 08/30/18 16:03 Consult Gastroenterology Routine Procedures Performed Operation Date: 08/30/18 09:30 Actual Procedures p Esophagogastroduodenoscopy - Mara Roper Ordered Studies 08/30/18 09:42 CT abd pelvis IV con only Stat Hospital Course (1) Upper GI bleed: Presented with melena. Not using any aspirin, nonsteroidal anti-inflammatory drugs, or other gastric irritants. Hemoglobin was 10.1 at time of admission. GI consulted. EGD demonstrated recurrent anastomotic ulcer [place] that risk of rebleeding was low. Pantoprazole increased to 40 mg twice daily. Hemoglobin day of discharge = 8.3. No oral Fe due to gastric ulcer. Received IV Fe. Continue to follow H&H and Fe levels. Consider additional doses of parenteral Fe as outpatient. (2) HTN (hypertension): Continue lisinopril. (3) Diabetes mellitus, type II: Diet controlled DM type 2 since gastric bypass. Hemoglobin A1c 7.1. Fasting blood sugar 08/31 = 126. Importance of weight control and exercise discussed. Follow as outpatient. (4) Depression: Continue fluoxetine. (5) DVT prophylaxis: No anticoagulants due to GI bleed. SCD's. Ambulate. (6) Discharge planning issues: Discharge to home. Family Medicine follow-up with Dr. Cortez. Total Time Total Time Spent Total Time Spent (In Minutes): 40 Discharge Plan Discharge Items Patient Disposition: Home - Self-Care Reason For Visit: GI BLEED Discharge Diagnosis: bleeding stomach ulcer Condition: Good Discharge Goals: Improve disease control Activity: Per 'Additional Instructions' section Activity Comment: gradually increase activity as tolerated Non-emergency contact: Primary Care Provider and Hospitalist Call non-emergency contact if: you have any medication questions and your symptoms worsen Follow-up/Referrals: Reji Cortez MD [Primary Care Provider] - (09/04/2018 11:00 AM Reji Cortez III, MD) Diet: Carb Consistent or DM2 and Heart Healthy Diet Comment: low fiber diet for 2 weeks, then high fiber Addtl Provider Instructions: Please have your blood count and iron levels checked when seen in the office next week. Increase pantoprazole (Protonix) to 40 mg twice a day. Do not use any medications that could upset your stomach like aspirin, ibuprofen, naproxen. OTHER INSTRUCTIONS: Seek medical attention if you have: * temperature above 101 * chest pain or trouble breathing * abdominal pain, nausea, vomiting * diarrhea, dark stools or bloody stools * any unanswered questions or concerns Call 911 if symptoms are severe. Call if you have any questions or problems. My cell # is [phone]. You can also reach a [facility] hospitalist on duty at [facility] 24 hours a day by calling [phone]. Prescriptions: New pantoprazole 40 mg tablet,delayed release (DR/EC) 40 mg PO BID 30 Days Qty: 60 RF: 5 Continued clindamycin HCl 300 mg capsule 300 mg PO DIRECTED PRN (Reason: before dentist appointment) RF: 0 fluoxetine 20 mg tablet 80 mg PO HS RF: 0 lisinopril 10 mg tablet 10 mg PO HS RF: 0 cyanocobalamin (vitamin B-12) 1,000 mcg/mL Solution 1,000 mcg IM UD RF: 0 Discontinued pantoprazole 40 mg tablet,delayed release (DR/EC) 40 mg PO DAILY RF: 0 Stand-Alone Forms: My [facility] Discharge Orders: Discharge Order (Routine); Ordered 09/01/18 Ordered By: Reji Johnson Admission Data Admit Date/Time: 08/30/18 12:38 Attending Provider: Reji Johnson Admit Provider: Sapphire Potter Primary Care Provider: Reji Cortez. Other Providers: Sapphire Potter ; Mara Roper Service: Telemetry Medical Other Interventions: Discharge Summary Assessment (RN) Last Done: 08/31/18 11:02 Pending Studies at Discharge: No DC Date/Time DO NOT enter until pt leaves facility: 09/01/18 14:22
== END 2018-09-01 14:22 | disposition home or self-care (01) | DRG 379 ==
LOC: ED 09:05 → 2N 12:38 → SUATTDRO 12:38 → 2N 14:21